=== PATIENT | female | born 1945 | race Caucasian/White ===

== ENCOUNTER 2021-04-12 19:15 | Observation (INO) | payer MEDICARE ==
[2021-04-12] MEDS ORDERED: MAG HYDROX/AL HYDROX/SIMETH 30 ML, HYOSCYAMINE ELIXIR 10 ML, LIDOCAINE VISCOUS 2% 10 ML PO STA ×3 (19:51)
[2021-04-12] MEDS ORDERED: ONDANSETRON 4 MG/2 ML VIAL IVP PRN (19:57)
[2021-04-12] MEDS ORDERED: NALOXONE 0.4 MG/ML 1 ML VIAL IV PRN (19:57)
--- NOTE | 2021-04-12 20:03 | ED ---
General Adult HPI - General Chief complaint: Abdominal Pain Stated complaint: abd pain Time Seen by Provider: 04/12/21 19:30 Source: patient, EMS Mode of arrival: EMS Limitations: no limitations - History of Present Illness Initial comments: Dictation was produced using [employer] dictation software. please excuse any grammatical, word or spelling errors. Chief Complaint: Patient is 75-year-old female sent in from [facility] for GI consultation. History of Present Illness: 75-year-old female she presents from [facility] for GI consultation. Patient states that she was at a restaurant having a meal when mid medial she began having epigastric pain. States it was severe. She was brought to [facility] where she was evaluated. They did do a CT showed a hiatal hernia. Patient has no history of hiatal hernia. Patient's labs were unremarkable. She was sent here for GI consultation. Patient states that the pain is localized to the epigastric area did not radiate to the shoulders or jaw. Not associated with nausea. They tried to do a by mouth trial there and supposedly she threw it right back up. She denies foreign body sensation in her throat. At this point she feels fine. She denies having trouble breathing and not drooling. The ROS documented in this emergency department record has been reviewed and confirmed by me. Those systems with pertinent positive or negative responses have been documented in the HPI. All other systems are other negative and/or noncontributory. PHYSICAL EXAM: General Impression: Alert and oriented x3, not in acute distress HEENT: Normocephalic atraumatic, extra-ocular movements intact, pupils equal and reactive to light bilaterally, mucous membranes moist. Cardiovascular: Heart regular rate and rhythm Chest: Able to complete full sentences, no retractions, no tachypnea Abdomen: abdomen soft, mild epigastric tenderness, non-distended, no organ omegaly Musculoskeletal: Pulses present and equal in all extremities, no peripheral edema Motor: no focal deficits noted Neurological: CN II-XII grossly intact, no focal motor or sensory deficits noted Skin: Intact with no visualized rashes Psych: Normal affect and mood ED course: 75-year-old female presents to the emergency department for epigastric pain, hiatal hernia and dysphagia. Vital signs upon arrival are within acceptable limits. Patient was worked up and treated initially at [facility]. They do not have GI consult. They sent patient to us for GI consultation. Dr. Almanza is attraction attendant. Patient has seen Dr. Almanza in the past. Patient evaluated at the bedside found to be stable medical condition. Patient does not have any ACS features. Transfer documentation was reviewed. Review of Systems ROS Statement: Those systems with pertinent positive or pertinent negative responses have been documented in the HPI. ROS Other: All systems not noted in ROS Statement are negative. General Exam Limitations: no limitations Course Vital Signs 04/12/21 19:19 Temperature 98.3 F Pulse Rate 97 Respiratory 18 Rate Blood Pressure 146/93 O2 Sat by Pulse 96 Oximetry Disposition Clinical Impression: Dysphagia Disposition: ADMITTED IP TO THIS HOSP Condition: Fair Referrals: Naman Batista MD [Primary Care Provider] - 1-2 days
[2021-04-12] MEDS: SODIUM CHLORIDE 0.9% 1,000 ML IV SCH (20:17)
[2021-04-13] MEDS ORDERED: lisinopriL 20 MG TAB PO SCH (03:13)
[2021-04-13] MEDS: MORPHINE SULFATE 2 MG/ML SYRINGE IVP PRN ×5 (03:42→21:54)
[2021-04-13] MEDS: SODIUM CHLORIDE 0.9% 1,000 ML IV SCH ×3 (06:19→21:55)
[2021-04-13] MEDS: SYMBICORT 160-4.5 MCG INHALER INHALATION SCH ×2 (07:31→19:40)
[2021-04-13] MEDS ORDERED: PANTOPRAZOLE 40 MG/10 ML VIAL IV SCH (09:00)
[2021-04-13] MEDS: DOCUSATE 100 MG CAP PO SCH (09:52)
[2021-04-13] MEDS: FERROUS SULFATE 325 MG TAB PO SCH (09:52)
[2021-04-13] MEDS: MULTIVITAMINS, THERA 1 EACH TAB PO SCH (09:52)
[2021-04-13 10:41] LABS: Basophils % (A) 0 %; Eosinophils # (A) 0.1 k/uL (0-0.7); Eosinophils % (A) 1 %; HCT 39.3 % (34.0-46.0); HGB 12.3 gm/dL (11.4-16.0); Lymphocytes % (A) 13 %; MCH 29.1 pg (25.0-35.0); MCHC 31.2 g/dL (31.0-37.0); MCV 93.1 fL (80.0-100.0); Mean Platelet Volume 7.6; Monocytes # (A) 0.7 k/uL (0-1.0); Monocytes % (A) 8 %; Neutrophils # (A) 6.2 k/uL (1.3-7.7); Neutrophils % (A) 76 %; Platelet Count 264 k/uL (150-450); RBC 4.22 m/uL (3.80-5.40); WBC 8.1 k/uL (3.8-10.6)
[2021-04-13 10:59] LABS: Chloride 103 mmol/L (98-107)
[2021-04-13 11:01] LABS: ALT 13 U/L (4-34); AST 21 U/L (14-36); African American GFR (CKD) >90 (>60 ml/min/1.73 sqM); Albumin 3.3 g/dL (3.5-5.0); Albumin/Globulin Ratio 1.4; Alkaline Phosphatase 138 U/L (38-126); Anion Gap 4 mmol/L; Blood Urea Nitrogen 15 mg/dL (7-17); Calcium 8.7 mg/dL (8.4-10.2); Carbon Dioxide 25 mmol/L (22-30); Globulin 2.3 g/dL; Glucose 107 mg/dL (74-99); Non-African American GFR(CKD) >90 (>60 ml/min/1.73 sqM); Potassium 4.1 mmol/L (3.5-5.1); Sodium 132 mmol/L (137-145); Total Bilirubin 1.2 mg/dL (0.2-1.3); Total Protein 5.6 g/dL (6.3-8.2)
[2021-04-13] MEDS ORDERED: PROPOFOL 10 MG/ML 20 ML VIAL IV ONE (13:13)
[2021-04-13] MEDS ORDERED: SODIUM CHLORIDE 0.9% 500 ML 500 ML IV ONE ×2 (13:21)
[2021-04-13] MEDS ORDERED: RX INFO: IV CONTRAST WAS GIVEN 1 EACH MISC MISCELLANE PRN (13:27)
--- NOTE | 2021-04-13 13:31 | P.PCN ---
Date of Procedure: 04/13/21 Procedure(s) Performed: BRIEF HISTORY: Patient is a 75-year-old, pleasant, white female admitted hospital with acute onset of severe epigastric pain but she was eating at restaurants yesterday. She initially went to the [facility] and had a CT of the abdomen done that was unremarkable other than a small hiatal hernia.. she was then transferred to [facility] and patient continues to have severe epigastric pain and midsternal pain. She reports no nausea vomiting. Dysphagia has resolved. She is scheduled for an upper endoscopy to evaluate further PROCEDURE PERFORMED: Esophagogastroduodenoscopy with biopsy . PREOPERATIVE DIAGNOSIS: ACUTE onset of severe epigastric pain and dysphagia since yesterday IV sedation per anesthesia. PROCEDURE: After informed consent was obtained, the patient was brought into the endoscopy unit. IV sedation was administered by Anesthesia under continuous monitoring. Initially the Olympus GIF-140 video endoscope was inserted into the mouth. Esophagus intubated without any difficulty. It was gradually advanced into the stomach and duodenum and carefully examined. The bulb and the second part of the duodenum appeared normal. The scope at this time was withdrawn to the stomach, adequately insufflated with air, and upon careful examination, mucosa of the antrum had 5 small superficial antral ulcers measuring between 3-4 mm in size with no active bleeding. Status post biopsy. Mucosa of the cardia and the fundus appeared normal. The scope was then withdrawn into the esophagus. The GE junction was located at 39 cm from the incisors. small hiatal hernia noted. There was a deep esophageal ulceration noted in the distal esophagus extending from 35-39 cm from the incisors with some spontaneous oozing identified. The Rest of the esophagus appeared normal. There were no erosions or ulcerations seen and the patient tolerated the procedure well. IMPRESSION: 1. Deep distal esophageal ulceration extended from 30-35 cm from the incisors with some oozing suspicious for spontaneous esophageal tear. 2. Small hiatal hernia. 3. Small superficial antral ulcers with no active bleeding RECOMMENDATIONS: The findings of this examination were discussed with the patient . At this time she will be kept nothing by mouth. Obtain CT of the chest to rule out esophageal perforation...
--- NOTE | 2021-04-13 15:34 | P.CONS ---
History of Present Illness - Reason for Consult Consult date: 04/13/21 GI bleed, Hiatal hernia Requesting physician: Wil Lerner - Chief Complaint Epigastric pain - History of Present Illness This is a 75-year-old white female who was transferred from [facility] for GI consult relating to epigastric pain that began yesterday after eating her dinner. Patient states that she was eating a salad and some salmon and she started having severe epigastric pain, the pain was so bad that she was unable to finish her dinner. She went to [facility] for further evaluation. She had a chest x-ray yesterday showed no acute process as well as a CT of the abdomen and pelvis that showed a moderate sized hiatal hernia. The patient last had a EGD and colonoscopy in January [address] Payton at [facility]. The patient states she only had findings of a small colon polyp and no recall of any hiatal hernia. Patient states she had nausea and vomiting yesterday, none today. She does take a low-dose aspirin and meloxicam daily. Labs were unremarkable at [facility]. She has been nothing by mouth. She denies any hematemesis, coffee-ground emesis, or melena. Denies any previous history of ulcers. She currently states the pain is still an 8 out of 10. Review of Systems REVIEW OF SYSTEMS: CARDIOPULMONARY: No chest pain or shortness of breath. Gastrointestinal: Epigastric pain. Nausea with vomiting. No hematemesis, coffee-ground emesis. No rectal bleeding, or melena. GENITOURINARY: No dysuria or hematuria. MUSCULOSKELETAL: Reports normal range of motion., Joint pain. SKIN: No rashes. No jaundice. ENDOCRINE: No chills, fevers. No excessive weight gain or loss. No polydipsia or polyuria. PSYCHIATRIC: Unremarkable. NEUROLOGY: No change in mental status. Denies dizziness, headache. ENT: Vision unremarkable. CONSTITUTIONAL: No recent weight loss. No fever, chills, night sweats. Past Medical History Past Medical History: Asthma, Hypertension History of Any Multi-Drug Resistant Organisms: None Reported Past Surgical History: No Surgical Hx Reported Past Anesthesia/Blood Transfusion Reactions: No Reported Reaction Past Psychological History: No Psychological Hx Reported Smoking Status: Never smoker Medications and Allergies Home Medications Medication Instructions Recorded Confirmed Type Albuterol Inhaler [Ventolin Hfa 1 - 2 puff INHALATION RT-Q4H PRN 04/12/21 04/12/21 History Inhaler] Budesonide/Formoterol Fumarate 2 puff INHALATION RT-BID@1000,2200 04/12/21 04/12/21 History [Symbicort 160-4.5 Mcg Inhaler] Docusate [Colace] 100 mg PO DAILY 04/12/21 04/12/21 History Doxepin HCl 50 mg PO HS@2200 04/12/21 04/12/21 History Enalapril Maleate 20 mg PO HS@2200 04/12/21 04/12/21 History Ferrous Sulfate [Iron (65 MG 325 mg PO DAILY 04/12/21 04/12/21 History Elemental)] Meloxicam 7.5 mg PO BID 04/12/21 04/12/21 History Montelukast [Singulair] 10 mg PO HS@1800 04/12/21 04/12/21 History Multivitamins, Thera [Multivitamin 1 tab PO DAILY 04/12/21 04/12/21 History (formulary)] Allergies Allergy/AdvReac Type Severity Reaction Status Date / Time sulfamethoxazole Allergy Intermediate Nausea Verified 04/12/21 20:37 [From Bactrim] trimethoprim [From Bactrim] Allergy Intermediate Nausea Verified 04/12/21 20:37 prednisone Allergy Unknown Verified 04/12/21 20:37 tetracycline Allergy Rash/Hives Verified 04/12/21 20:37 rynatan Allergy Rash/Hives Uncoded 04/12/21 20:37 Physical Exam Vitals: Vital Signs Temp Pulse Pulse Resp BP BP Pulse Ox 04/13/21 08:06 98.4 F 87 18 132/68 96 04/13/21 08:00 87 18 04/13/21 02:20 98.3 F 90 18 144/74 96 04/13/21 02:00 90 18 04/12/21 23:18 82 18 156/79 96 04/12/21 21:12 90 18 143/86 97 04/12/21 19:19 98.3 F 97 18 146/93 96 Intake and Output 04/12/21 04/13/21 04/13/21 22:59 06:59 14:59 Other: Voiding Method Toilet Toilet # Voids 1 Weight 81.647 kg General appearance: The patient is alert, oriented, appears in no acute distress. HET: Head is normocephalic and atraumatic. Conjunctiva pink. Sclera anicteric. Neck: Supple without lymphadenopathy. Trachea midline. Heart: S1 S2. Regular rate and rhythm. Lungs: Clear to auscultation. Abdomen: Soft, epigastric tenderness, nondistended with bowel sounds. No guarding or rigidity. Skin: No rashes. No jaundice. Extremities: Normal skin color and turgor. No pedal edema. Neurological: No focal deficits. Alert and oriented 3.. Results CBC & Chem 7: 04/13/21 10:24 04/13/21 10:24 Assessment and Plan (1) Epigastric pain Narrative/Plan: 75-year-old female who presented to [facility] yesterday after eating dinner with new onset of severe epigastric pain. Patient states she was eating her salad and some salmon when suddenly she felt a severe pain in her epigastric region. She went to [facility] for further evaluation and had a chest x-ray that showed no acute findings and a CT of the abdomen that showed a moderate-sized hiatal hernia. Patient states the epigastric pain was associated with nausea and vomiting. She denies any previous histories of ulcers. She does take low-dose aspirin and meloxicam daily. She denied any hematemesis or coffee-ground emesis. No melena. She had a EGD and colonoscopy in January [address] Almanza at [facility] which she reports of a small colon polyp and no recollection of any hiatal hernia. Patient still having pain at this time but no further nausea or vomiting. There was possible concern for retained foreign body. Will proceed with upper endoscopy Current Visit: Yes Status: Acute Code(s): R10.13 - EPIGASTRIC PAIN SNOMED Code(s): 68822979 Plan: 1. Continue symptomatic and supportive care 2. Keep nothing by mouth 3. Avoid NSAIDs 4. Protonix 40 mg twice a day 5. Will proceed with EGD this afternoon, procedure discussed with patient in detail including risks and benefits. Patient willing to proceed. Thank you for this consultation, we will continue to follow. Dr. Marlo Almanza I agree with the dictator's note, documented as a scribe by Sue Vallejo.
--- NOTE | 2021-04-13 16:27 | P.HPIM ---
History of Present Illness H&P Date: 04/13/21 Chief Complaint: Abdominal pain History of presenting complaint: This is a pleasant 75-year-old patient, follows with Dr. Naman Batista. Chronic stable medical conditions include asthma, hypertension, osteoarthritis. Patient is having dinner last night when she suddenly developed severe epigastric pain. Limited localized there. No radiation to the back. She did vomit care. No fever no chills. She does get reflux symptoms. She is chronically on NSAIDs for arthritis. She initially presented to [facility] for which she was transferred here. She says over a year ago she had a EGD done by Dr. Marlo Almanza was found to have inflammation of the stomach. Denies any fever and chills. Put on IV fluids. GI was consulted. Pending EGD this morning. Review of systems: GEN.: Tired, EYES: None HEENT: None NECK: None RESPIRATORY: None CARDIOVASCULAR: None GASTROINTESTINAL: As above GENITOURINARY: [Urinary incontinence MUSCULOSKELETAL: Joint pains, especially hips and knees LYMPHATICS: None HEMATOLOGICAL: None PSYCHIATRY: None NEUROLOGICAL: None Past medical history to include: Asthma, hypertension, osteoarthritis Social history: . No smoking or alcohol. Family history: Reviewed, noncontributory to presentation Physical examination: VITAL SIGNS: 98.3, 97, 18, 146.93, 96% room air GENERAL: BMI 35.2, reclining in bed, awake not in distress. EYES: Pupils equal. Conjunctiva normal. HEENT: External appearance of nose and ears normal, oral cavity grossly normal. NECK: JVD not raised; masses not palpable. HEART: First and second heart sounds are normal; no edema. LUNGS: Respiratory rate normal; clear to auscultation. ABDOMEN: Soft, mild epigastric tenderness, liver spleen not palpable, no masses palpable. PSYCH: Alert and oriented x3; mood and affect normal. MUSCULAR skeletal: Evidence of OA in multiple joints NEUROLOGICAL: Cranial nerves grossly intact; no facial asymmetry, power and sensation grossly intact. LYMPHATICS: No lymph nodes palpable in the axilla and neck INVESTIGATIONS, reviewed in the clinical context: WBC 8.1 hemoglobin 12.3 platelets 264 potassium 4.1 creatinine 0.58 AST 21 ALT 13 alkaline phosphatase 138 albumin 3.3 Coronavirus [PCR]: Not detected Assessment and plan: -This patient presented with sudden onset of epigastric pain while having a meal. Patient's had intermittent reflux symptoms. Does chronically take NSAIDs. Concern about PUD. Along with esophagitis. PPI started. GI consulted. EGD today. Nothing by mouth -Moderate persistent asthma, stable . Continue albuterol when necessary, Symbicort 160/4.52 puffs twice a day, Synthroid 10 mg daily at bedtime -Bilateral primary osteoarthritis Discontinue meloxicam. Tylenol when necessary -Essential hypertension Enalapril 20 mg daily at bedtime -Chronic urinary stress incontinence Follow clinically -GERD On PPI -Chronic insomnia On doxepin Patient getting IV fluids. Made nothing by mouth. Started PPI. GI consulted. Pending EGD this afternoon. Care was discussed with the patient. Questions answered. Other home medications resumed. DC NSAIDs. Past Medical History Past Medical History: Asthma, Hypertension History of Any Multi-Drug Resistant Organisms: None Reported Past Surgical History: No Surgical Hx Reported Past Anesthesia/Blood Transfusion Reactions: No Reported Reaction Past Psychological History: No Psychological Hx Reported Smoking Status: Never smoker Medications and Allergies Home Medications Medication Instructions Recorded Confirmed Type Albuterol Inhaler [Ventolin Hfa 1 - 2 puff INHALATION RT-Q4H PRN 04/12/21 04/12/21 History Inhaler] Budesonide/Formoterol Fumarate 2 puff INHALATION RT-BID@1000,2200 04/12/21 04/12/21 History [Symbicort 160-4.5 Mcg Inhaler] Docusate [Colace] 100 mg PO DAILY 04/12/21 04/12/21 History Doxepin HCl 50 mg PO HS@2200 04/12/21 04/12/21 History Enalapril Maleate 20 mg PO HS@2200 04/12/21 04/12/21 History Ferrous Sulfate [Iron (65 MG 325 mg PO DAILY 04/12/21 04/12/21 History Elemental)] Meloxicam 7.5 mg PO BID 04/12/21 04/12/21 History Montelukast [Singulair] 10 mg PO HS@1800 04/12/21 04/12/21 History Multivitamins, Thera [Multivitamin 1 tab PO DAILY 04/12/21 04/12/21 History (formulary)] Allergies Allergy/AdvReac Type Severity Reaction Status Date / Time sulfamethoxazole Allergy Intermediate Nausea Verified 04/12/21 20:37 [From Bactrim] trimethoprim [From Bactrim] Allergy Intermediate Nausea Verified 04/12/21 20:37 prednisone Allergy Unknown Verified 04/12/21 20:37 tetracycline Allergy Rash/Hives Verified 04/12/21 20:37 rynatan Allergy Rash/Hives Uncoded 04/12/21 20:37 Physical Exam Vitals: Vital Signs Temp Pulse Pulse Resp BP BP Pulse Ox 04/13/21 08:06 98.4 F 87 18 132/68 96 04/13/21 08:00 87 18 04/13/21 02:20 98.3 F 90 18 144/74 96 04/13/21 02:00 90 18 04/12/21 23:18 82 18 156/79 96 04/12/21 21:12 90 18 143/86 97 04/12/21 19:19 98.3 F 97 18 146/93 96 Intake and Output 04/12/21 04/13/21 04/13/21 22:59 06:59 14:59 Other: Voiding Method Toilet Toilet # Voids 1 Weight 81.647 kg Results CBC & Chem 7: 04/13/21 10:24 04/13/21 10:24 Thrombosis Risk Factor Assmnt - Choose All That Apply Each Factor Represents 1 point: Obesity (BMI >25) Each Risk Factor Represents 2 Points: Age 61-74 years Other congenital or acquired thrombophilia - If yes, enter type in comment: No Thrombosis Risk Factor Assessment Total Risk Factor Score: 3 Thrombosis Risk Factor Assessment Level: Moderate Risk
[2021-04-13] MEDS: PANTOPRAZOLE 40 MG TABLET PO SCH (17:04)
--- NOTE | 2021-04-13 19:03 | CT ---
EXAMINATION TYPE: CT chest w con DATE OF EXAM: 04/13/2021 COMPARISON: Radiographs 04/12/2021. HISTORY: epigastric pain. Esophageal cancer. CT DLP: 328.8 mGycm Automated exposure control for dose reduction was used. TECHNIQUE: CT scan of the chest is performed with IV Contrast, patient injected with 100 mL of Isovue 300. MIP Images are created on CT scanner and reviewed. 3D reconstructed images are created on an independent workstation and reviewed. FINDINGS: LUNGS: There are trace bilateral pleural effusions with adjacent small opacities. There is no pneum othorax seen. No suspicious pulmonary nodules. The tracheobronchial tree is patent. MEDIASTINUM: There are no greater than 1 cm hilar or mediastinal lymph nodes. No pericardial effusi on is seen. OTHER: Hiatal hernia versus gastric pull-up postsurgical changes. No additional significant abnormal ity is seen. IMPRESSION: Trace pleural effusions adjacent atelectasis. Otherwise no acute abnormality.
[2021-04-13] MEDS: DOXEPIN 25 MG CAP PO SCH (21:55)
[2021-04-13] MEDS: MONTELUKAST 10 MG TAB PO SCH (21:55)
[2021-04-13] MEDS: lisinopriL 20 MG TAB PO SCH (21:55)
[2021-04-14] MEDS: MORPHINE SULFATE 2 MG/ML SYRINGE IVP PRN ×5 (02:17→20:19)
[2021-04-14] MEDS: ALBUTEROL NEBULIZED 2.5 MG/3 ML INHALATION PRN ×2 (07:38→15:38)
[2021-04-14] MEDS: SYMBICORT 160-4.5 MCG INHALER INHALATION SCH ×2 (07:38→19:15)
[2021-04-14] MEDS: PANTOPRAZOLE 40 MG TABLET PO SCH ×2 (09:12→15:46)
[2021-04-14] MEDS: MULTIVITAMINS, THERA 1 EACH TAB PO SCH (09:12)
[2021-04-14] MEDS: FERROUS SULFATE 325 MG TAB PO SCH (09:12)
[2021-04-14] MEDS: DOCUSATE 100 MG CAP PO SCH (09:12)
[2021-04-14] MEDS: SODIUM CHLORIDE 0.9% 1,000 ML IV SCH ×2 (09:14→17:53)
[2021-04-14 09:41] LABS: Basophils % (A) 0 %; Eosinophils # (A) 0.2 k/uL (0-0.7); Eosinophils % (A) 3 %; HCT 43.2 % (34.0-46.0); HGB 13.6 gm/dL (11.4-16.0); Lymphocytes # (A) 1.1 k/uL (1.0-4.8); Lymphocytes % (A) 17 %; MCH 29.8 pg (25.0-35.0); MCHC 31.6 g/dL (31.0-37.0); MCV 94.4 fL (80.0-100.0); Mean Platelet Volume 7.4; Monocytes # (A) 0.4 k/uL (0-1.0); Monocytes % (A) 7 %; Neutrophils # (A) 4.6 k/uL (1.3-7.7); Neutrophils % (A) 71 %; Platelet Count 252 k/uL (150-450); RBC 4.57 m/uL (3.80-5.40); WBC 6.4 k/uL (3.8-10.6)
[2021-04-14 10:03] LABS: African American GFR (CKD) >90 (>60 ml/min/1.73 sqM); Anion Gap 6 mmol/L; Blood Urea Nitrogen 9 mg/dL (7-17); Carbon Dioxide 25 mmol/L (22-30); Chloride 103 mmol/L (98-107); Glucose 99 mg/dL (74-99); Non-African American GFR(CKD) >90 (>60 ml/min/1.73 sqM); Potassium 3.4 mmol/L (3.5-5.1); Sodium 134 mmol/L (137-145)
--- NOTE | 2021-04-14 12:12 | P.PN ---
Subjective Progress Note Date: 04/14/21 Principal diagnosis: epigastric pain 75-year-old female who was a transfer from [facility] for severe epigastric pain underwent an EGD yesterday with findings of deep distal esophageal ulcer with oozing, small hiatal hernia, and small superficial antral ulcers without any bleeding. Patient underwent a CT of the chest which was unremarkable other than a hiatal hernia. Patient states abdominal pain has improved significantly. She is denying any nausea or vomiting. She has been nothing by mouth through the night. She has been afebrile. Hemoglobin stable actually improved to 13.6. No leukocytosis. Objective - Vital Signs Vital signs: Vital Signs Temp 97.5 F L 04/14/21 07:00 Pulse 86 04/14/21 07:57 Resp 17 04/14/21 07:00 BP 146/73 04/14/21 07:00 Pulse Ox 95 04/14/21 07:00 Intake & Output 04/13/21 04/14/21 04/14/21 18:59 06:59 18:59 Intake Total 150 Balance 150 Intake: IV 100 Oral 50 Other: Voiding Method Toilet Toilet # Voids 2 2 - Exam General appearance: The patient is alert, oriented, appears in no acute distress. HET: Head is normocephalic and atraumatic. Conjunctiva pink. Sclera anicteric. Neck: Supple without lymphadenopathy. Abdomen: Soft, nontender, nondistended with bowel sounds. No guarding or rigidity. Extremities: Normal skin color and turgor. No pedal edema Skin: No rashes, no jaundice Neurological: No focal deficits. Alert and oriented 3. - Labs CBC & Chem 7: 04/14/21 09:18 04/14/21 09:18 Labs: Abnormal Lab Results - Last 24 Hours (Table) 04/13/21 Range/Units 10:24 Sodium 132 L (137-145) mmol/L Glucose 107 H (74-99) mg/dL Alkaline Phosphatase 138 H (38-126) U/L Total Protein 5.6 L (6.3-8.2) g/dL Albumin 3.3 L (3.5-5.0) g/dL Assessment and Plan (1) Epigastric pain Narrative/Plan: 75-year-old female who presented to [facility] yesterday after eating dinner with new onset of severe epigastric pain. Patient states she was eating her salad and some salmon when suddenly she felt a severe pain in her epigastric region. She went to [facility] for further evaluation and had a chest x-ray that showed no acute findings and a CT of the abdomen that showed a moderate-sized hiatal hernia. Patient states the epigastric pain was associated with nausea and vomiting. She denies any previous histories of ulcers. She does take low-dose aspirin and meloxicam daily. She denied any hematemesis or coffee-ground emesis. No melena. She had a EGD and colonoscopy in January [address] Almanza at [facility] which she reports of a small colon polyp and no recollection of any hiatal hernia. Patient still having pain at this time but no further nausea or vomiting. There was possible concern for retained foreign body. Will proceed with upper endoscopy Patient is status post EGD with findings of deep distal esophageal ulcer with oozing, small hiatal hernia, small superficial antral ulcers without any bleeding. Patient to remain on Protonix 40 mg twice a day. CT of the chest was ordered which was unremarkable other than small hernia. Current Visit: Yes Status: Acute Code(s): R10.13 - EPIGASTRIC PAIN SNOMED Code(s): 75123035 Plan: 1. Continue symptomatic and supportive care 2. Clear liquid diet 3. Avoid NSAIDs 4. Protonix 40 mg twice a day 5. Patient is status post EGD 6. CT of chest ordered and reviewed Thank you for this consultation, we will continue to follow. Dr. Marlo Almanza I agree with the dictator's note, documented as a scribe by Sue Vallejo.
--- NOTE | 2021-04-14 14:42 | P.GSCN ---
History of Present Illness Consult date: 04/14/21 Reason for Consult: Esophageal tear Requesting physician: Hossein Hay History of present illness: This is a 75-year-old female patient who follows on an outpatient basis Dr. Batista for primary care. She has a previous medical history of hypertension, asthma, GERD, and osteoarthritis. She presented to [facility] with complaints of sudden severe epigastric pain when eating dinner. She denied any radiation, fevers, chills. She did endorse vomiting. She is chronically on NSAIDS for her osteoarthritis. She did have an EGD completed approximately a year ago by Dr. Almanza and was found to have inflammation of her stomach. She was admitted for evaluation and treatment with consultation placed to Dr. Almanza who performed endoscopy yesterday which demonstrated deep distal esophageal ulceration extended from 30-35 cm from the incisors with some oozing suspicious for spontaneous esophageal tear, small hiatal hernia, and small superficial antral ulcers with no active bleeding. Due to the suspicion of esophageal tear a CT of the chest was ordered with no acute abnormality noted. Dr. Lovett from cardiothoracic surgery was consulted to review findings of the EGD regarding possible esophageal tear. Review of Systems Review of systems was completed it was negative except as noted - Gastrointestinal Gastrointestinal Comment(s): Esophageal pain, currently resolved Reports as per HPI Past Medical History Past Medical History: Asthma, GERD/Reflux, Hypertension, Osteoarthritis (OA) History of Any Multi-Drug Resistant Organisms: None Reported Past Surgical History: No Surgical Hx Reported Past Anesthesia/Blood Transfusion Reactions: No Reported Reaction Past Psychological History: No Psychological Hx Reported Smoking Status: Never smoker Past Alcohol Use History: None Reported Past Drug Use History: None Reported Medications and Allergies Home Medications Medication Instructions Recorded Confirmed Type Albuterol Inhaler [Ventolin Hfa 1 - 2 puff INHALATION RT-Q4H PRN 04/12/21 04/12/21 History Inhaler] Budesonide/Formoterol Fumarate 2 puff INHALATION RT-BID@1000,219904/12/21 04/12/21 History [Symbicort 160-4.5 Mcg Inhaler] Docusate [Colace] 100 mg PO DAILY 04/12/21 04/12/21 History Doxepin HCl 50 mg PO HS@219904/12/21 04/12/21 History Enalapril Maleate 20 mg PO HS@2200 04/12/21 04/12/21 History Ferrous Sulfate [Iron (65 MG 325 mg PO DAILY 04/12/21 04/12/21 History Elemental)] Meloxicam 7.5 mg PO BID 04/12/21 04/12/21 History Montelukast [Singulair] 10 mg PO HS@1800 04/12/21 04/12/21 History Multivitamins, Thera [Multivitamin 1 tab PO DAILY 04/12/21 04/12/21 History (formulary)] Allergies Allergy/AdvReac Type Severity Reaction Status Date / Time sulfamethoxazole Allergy Intermediate Nausea Verified 04/12/21 20:37 [From Bactrim] trimethoprim [From Bactrim] Allergy Intermediate Nausea Verified 04/12/21 20:37 prednisone Allergy Unknown Verified 04/12/21 20:37 tetracycline Allergy Rash/Hives Verified 04/12/21 20:37 rynatan Allergy Rash/Hives Uncoded 04/12/21 20:37 Surgical - Exam Vital Signs Temp Pulse Resp BP Pulse Ox 98.3 F 97 18 146/93 96 04/12/21 19:19 04/12/21 19:19 04/12/21 19:19 04/12/21 19:19 04/12/21 19:19 CONSTITUTIONAL: Awake and alert, appears comfortable, cooperative, well- developed, well-nourished, no pain, no acute distress EYES: Pupils equal, round, reactive to light, normal ocular movement ENT: Moist mucous membranes without oral lesions present NECK: No masses, no bruits, trachea midline RESPIRATORY: Lungs sounds clear to auscultation bilaterally. Respirations even, nonlabored. Currently on room air with oxygen saturation 95%. CARDIOVASCULAR: S1, S2 present. Regular rate and rhythm. Palpable peripheral pulses bilaterally. No edema present. GASTROINTESTINAL: Abdomen soft, nontender, nondistended without masses or organomegaly noted. There is no rebound or guarding present. Active bowel sounds present 4 quadrants. GENITOURINARY: Deferred INTEGUMENTARY: Skin is warm and dry with evidence of good perfusion. NEUROLOGIC: Cranial nerves II through XII intact, normal coordination, no obvious motor or sensory deficits, speech is normal MUSKULOSKELETAL: Able to move all extremities, strength equal bilaterally, normal posture PSYCHIATRIC: Alert and oriented to person place and time, appropriate affect, intact judgment and insight Results - Labs 04/14/21 09:18 04/14/21 09:18 Abnormal Lab Results - Last 24 Hours (Table) 04/14/21 Range/Units 09:18 Sodium 134 L (137-145) mmol/L Potassium 3.4 L (3.5-5.1) mmol/L Diabetes panel 04/14/21 Range/Units 09:18 Sodium 134 L (137-145) mmol/L Potassium 3.4 L (3.5-5.1) mmol/L Chloride 103 (98-107) mmol/L Carbon Dioxide 25 (22-30) mmol/L BUN 9 (7-17) mg/dL Creatinine 0.57 (0.52-1.04) mg/dL Glucose 99 (74-99) mg/dL Calcium 9.0 (8.4-10.2) mg/dL Calcium panel 04/14/21 Range/Units 09:18 Calcium 9.0 (8.4-10.2) mg/dL Pituitary panel 04/14/21 Range/Units 09:18 Sodium 134 L (137-145) mmol/L Potassium 3.4 L (3.5-5.1) mmol/L Chloride 103 (98-107) mmol/L Carbon Dioxide 25 (22-30) mmol/L BUN 9 (7-17) mg/dL Creatinine 0.57 (0.52-1.04) mg/dL Glucose 99 (74-99) mg/dL Calcium 9.0 (8.4-10.2) mg/dL Adrenal panel 04/14/21 Range/Units 09:18 Sodium 134 L (137-145) mmol/L Potassium 3.4 L (3.5-5.1) mmol/L Chloride 103 (98-107) mmol/L Carbon Dioxide 25 (22-30) mmol/L BUN 9 (7-17) mg/dL Creatinine 0.57 (0.52-1.04) mg/dL Glucose 99 (74-99) mg/dL Calcium 9.0 (8.4-10.2) mg/dL - Imaging CT scan - chest: report reviewed, image reviewed Assessment and Plan Assessment: 1. Sudden severe esophageal pain, status post EGD 2. Hypertension 3. Asthma 4. GERD 5. Osteoarthritis, on chronic NSAIDS Plan: The patient was seen and examined at the bedside with Dr. Lovett. The chart/diagnostics were reviewed including review of CT scan with Dr. Lovett. There is no evidence of full thickness injury to the esophagus, the patient may have superficial partial thickness tear although doubtful as the patient has no fever, no leukocytosis, and no other evidence on CT or by physical examination. No surgical intervention is warranted. Continue medical management per primary care service. Thank you Dr. Hay for this consult. Please call us with any further questions. Time with Patient: Greater than 30
[2021-04-14] MEDS: MONTELUKAST 10 MG TAB PO SCH (20:19)
[2021-04-14] MEDS: lisinopriL 20 MG TAB PO SCH (20:19)
[2021-04-14] MEDS: DOXEPIN 25 MG CAP PO SCH (20:19)
[2021-04-15] MEDS: MORPHINE SULFATE 2 MG/ML SYRINGE IVP PRN ×5 (01:25→20:42)
[2021-04-15] MEDS: SODIUM CHLORIDE 0.9% 1,000 ML IV SCH ×3 (04:34→20:42)
[2021-04-15] MEDS: PANTOPRAZOLE 40 MG TABLET PO SCH ×2 (07:21→17:07)
[2021-04-15] MEDS: MULTIVITAMINS, THERA 1 EACH TAB PO SCH (07:21)
[2021-04-15] MEDS: ALBUTEROL NEBULIZED 2.5 MG/3 ML INHALATION PRN ×3 (07:58→16:47)
[2021-04-15] MEDS: SYMBICORT 160-4.5 MCG INHALER INHALATION SCH ×2 (07:58→20:13)
[2021-04-15] MEDS: MAG HYDROX/AL HYDROX/SIMETH 30 ML CUP PO PRN ×3 (11:14→23:55)
[2021-04-15 11:48] VITALS: BMI 35.2
--- NOTE | 2021-04-15 15:32 | P.PN ---
Subjective Progress Note Date: 04/15/21 Principal diagnosis: epigastric pain 75-year-old female who was a transfer from [facility] for severe epigastric pain underwent an EGD yesterday with findings of deep distal esophageal ulcer with oozing, small hiatal hernia, and small superficial antral ulcers without any bleeding. Patient underwent a CT of the chest which was unremarkable other than a hiatal hernia. Cardiothoracic surgery was consult if by primary medicine team, no surgical intervention indicated. The patient states she did have the pain again through the night in the epigastric region. Denied any nausea or vomiting. She is tolerating her clear liquid diet. No difficulty with swallowing or painful swallowing. Objective - Vital Signs Vital signs: Vital Signs Temp 98.3 F 04/15/21 07:00 Pulse 84 04/15/21 08:11 Resp 19 04/15/21 08:00 BP 155/83 04/15/21 07:00 Pulse Ox 97 04/15/21 07:00 Intake & Output 04/14/21 04/15/21 04/15/21 18:59 06:59 18:59 Intake Total 239 180 Balance 239 180 Intake: Oral 239 180 Other: Voiding Method Toilet Toilet Toilet # Voids 4 3 # Bowel Movements 1 1 - Exam General appearance: The patient is alert, oriented, appears in no acute distress. HET: Head is normocephalic and atraumatic. Conjunctiva pink. Sclera anicteric. Neck: Supple without lymphadenopathy. Abdomen: Soft, nontender, nondistended with bowel sounds. No guarding or rigidity. Extremities: Normal skin color and turgor. No pedal edema Skin: No rashes, no jaundice Neurological: No focal deficits. Alert and oriented 3. - Labs CBC & Chem 7: 04/14/21 09:18 04/14/21 09:18 Assessment and Plan (1) Epigastric pain Narrative/Plan: 75-year-old female who presented to [facility] yesterday after eating dinner with new onset of severe epigastric pain. Patient states she was eating her salad and some salmon when suddenly she felt a severe pain in her epigastric region. She went to [facility] for further evaluation and had a chest x-ray that showed no acute findings and a CT of the abdomen that showed a moderate-sized hiatal hernia. Patient states the epigastric pain was associated with nausea and vomiting. She denies any previous histories of ulcers. She does take low-dose aspirin and meloxicam daily. She denied any hematemesis or coffee-ground emesis. No melena. She had a EGD and colonoscopy in January [address] Almanza at [facility] which she reports of a small colon polyp and no recollection of any hiatal hernia. Patient still havin g pain at this time but no further nausea or vomiting. There was possible concern for retained foreign body. Will proceed with upper endoscopy Patient is status post EGD with findings of deep distal esophageal ulcer with oozing, small hiatal hernia, small superficial antral ulcers without any ble eding. Patient to remain on Protonix 40 mg twice a [address] of the chest was ordered which was unremarkable other than small hernia. Current Visit: Yes Status: Acute Code(s): R10.13 - EPIGASTRIC PAIN SNOMED Code(s): 75231727 Plan: 1. Continue symptomatic and supportive care 2. Continue Clear liquid diet, will advance to full liquids tomorrow 3. Avoid NSAIDs 4. Protonix 40 mg twice a day 5. Patient is status post EGD 6. CT of chest ordered and reviewed 7. Recommend patient stay another night for further monitoring 8. Maalox ordered as needed Thank you for this consultation, we will continue to follow. Dr. Marlo Almanza I agree with the dictator's note, documented as a scribe by Sue Vallejo.
--- NOTE | 2021-04-15 16:21 | P.PN ---
Progress Note - Text Progress Note Date: 04/14/21 History of presenting complaint: This is a pleasant 75-year-old patient, follows with Dr. Naman Batista. Chronic stable medical conditions include asthma, hypertension, osteoarthritis. Patient is having dinner last night when she suddenly developed severe epigastric pain. Limited localized there. No radiation to the back. She did vomit care. No fever no chills. She does get reflux symptoms. She is chronically on NSAIDs for arthritis. She initially presented to [facility] for which she was transferred here. She says over a year ago she had a EGD done by Dr. Marlo Almanza was found to have inflammation of the stomach. Denies any fever and chills. Put on IV fluids. GI was consulted. Pending EGD this morning. April 14: EGD done yesterday revealed superficial antral ulcers and linear superficial esophageal tear, with slight oozing. Computed tomography scan of the chest was negative for any air leak. Patient has been placed on eliquis. Getting intermittent lower chest pain. Cardiothoracic surgery consulted. Discussed with Dr. Marlo Almanza. Keep on clear liquids. Review of systems: Was done for constitutional, cardiovascular, GI, pulmonary. relevant finding as above Current medications reviewed in electronic records Past medical history to include: Asthma, hypertension, osteoarthritis Social history: . No smoking or alcohol. Family history: Reviewed, noncontributory to presentation Physical examination: VITAL SIGNS: 97.5, 82, 17, 146/73, 95% room air GENERAL: reclining in bed, awake not in distress. EYES: Pupils equal. Conjunctiva normal. NECK: JVD not raised; masses not palpable. HEART: First and second heart sounds are normal; no edema. LUNGS: Respiratory rate normal; clear to auscultation. ABDOMEN: Soft, no tenderness, liver spleen not palpable, no masses palpable. PSYCH: Alert and oriented x3; mood and affect normal. MUSCULAR skeletal: Evidence of OA in multiple joints INVESTIGATIONS, reviewed in the clinical context: Computed tomography scan of the chest [April 13]: Small pleural effusion. EGD: Superficial esophageal tear. Superficial antral ulcers WBC 8.1 hemoglobin 12.3 platelets 264 potassium 4.1 creatinine 0.58 AST 21 ALT 13 alkaline phosphatase 138 albumin 3.3 Coronavirus [PCR]: Not detected Assessment and plan: -Superficial esophageal tear. No perforation : Continues to have some pain. Computed tomography scan unremarkable. Keep on clear liquids. Cardiothoracic surgery consulted. -Moderate persistent asthma, stable . Continue albuterol when necessary, Symbicort 160/4.52 puffs twice a day, Synthroid 10 mg daily at bedtime -Bilateral primary osteoarthritis Discontinue meloxicam. Tylenol when necessary -Essential hypertension Enalapril 20 mg daily at bedtime -Chronic urinary stress incontinence Follow clinically -GERD On PPI -Chronic insomnia On doxepin Continue IV fluids. Continue clear liquid diet. Discussed with Dr. Marlo Almanza. Cardiothoracic team consulted. As a backup. Discussed with the patient.
--- NOTE | 2021-04-15 16:28 | P.PN ---
Progress Note - Text Progress Note Date: 04/15/21 History of presenting complaint: This is a pleasant 75-year-old patient, follows with Dr. Naman Batista. Chronic stable medical conditions include asthma, hypertension, osteoarthritis. Patient is having dinner last night when she suddenly developed severe epigastric pain. Limited localized there. No radiation to the back. She did vomit care. No fever no chills. She does get reflux symptoms. She is chronically on NSAIDs for arthritis. She initially presented to [facility] for which she was transferred here. She says over a year ago she had a EGD done by Dr. Marlo Almanza was found to have inflammation of the stomach. Denies any fever and chills. Put on IV fluids. GI was consulted. Pending EGD this morning. April 14: EGD done yesterday revealed superficial antral ulcers and linear superficial esophageal tear, with slight oozing. Computed tomography scan of the chest was negative for any air leak. Patient has been placed on eliquis. Getting intermittent lower chest pain. Cardiothoracic surgery consulted. Discussed with Dr. Marlo Almanza. Keep on clear liquids. April 15: Continues to have lower chest pain around 6/10. Clear liquids. Has been up to the bathroom. Did walk in the hallway. No nausea vomiting. Seen by cardiothoracic team yesterday. As a backup. Review of systems: Was done for constitutional, cardiovascular, GI, pulmonary. relevant finding as above Active Medications Al Hydroxide/Mg Hydroxide (Mag Hydrox/Al Hydrox/Simeth 30 Ml Cup) 30 ml PO Q4HR PRN PRN Reason: GI Upset Last Admin: 04/15/21 15:17 Dose: 30 ml Documented by: Albuterol Sulfate (Albuterol Nebulized 2.5 Mg/3 Ml) 2.5 mg INHALATION RT-Q4H PRN PRN Reason: Shortness Of Breath Last Admin: 04/15/21 12:13 Dose: 2.5 mg Documented by: Budesonide/Formoterol Fumarate (Symbicort 160-4.5 Mcg Inhaler) 2 puff INHALATION RT-BID@1000,2200 [facility] Last Admin: 04/15/21 07:58 Dose: 2 puff Documented by: Doxepin HCl (Doxepin 25 Mg Cap) 50 mg PO HS [facility] Last Admin: 04/14/21 20:19 Dose: 50 mg Documented by: Sodium Chloride (Saline 0.9%) 1,000 mls @ 110 mls/hr IV .Q9H6M [facility] Last Admin: 04/15/21 15:17 Dose: 110 mls/hr Documented by: Lisinopril (Lisinopril 20 Mg Tab) 40 mg PO [facility] Last Admin: 04/14/21 20:19 Dose: 40 mg Documented by: Montelukast Sodium (Montelukast 10 Mg Tab) 10 mg PO [facility] Last Admin: 04/14/21 20:19 Dose: 10 mg Documented by: Morphine Sulfate (Morphine Sulfate 2 Mg/Ml Syringe) 1 mg IVP Q4HR PRN PRN Reason: Pain Last Admin: 04/15/21 15:17 Dose: 1 mg Documented by: Multivitamins (Multivitamins, Thera 1 Each Tab) 1 each PO DAILY [facility] Last Admin: 04/15/21 07:21 Dose: 1 each Documented by: Naloxone HCl (Naloxone 0.4 Mg/Ml 1 Ml Vial) 0.2 mg IV Q2M PRN PRN Reason: Opioid Reversal Ondansetron HCl (Ondansetron 4 Mg/2 Ml Vial) 4 mg IVP Q8HR PRN PRN Reason: Nausea And Vomiting Pantoprazole Sodium (Pantoprazole 40 Mg Tablet) 40 mg PO AC-BID [facility] Last Admin: 04/15/21 07:21 Dose: 40 mg Documented by: Past medical history to include: Asthma, hypertension, osteoarthritis Social history: . No smoking or alcohol. Family history: Reviewed, noncontributory to presentation Physical examination: VITAL SIGNS: 97.7, 97, 18, 156.77, 98% GENERAL: reclining in bed, awake not in distress. EYES: Pupils equal. Conjunctiva normal. NECK: JVD not raised; masses not palpable. HEART: First and second heart sounds are normal; no edema. LUNGS: Respiratory rate normal; clear to auscultation. ABDOMEN: Soft, no tenderness, liver spleen not palpable, no masses palpable. PSYCH: Alert and oriented x3; mood and affect normal. MUSCULAR skeletal: Evidence of OA in multiple joints INVESTIGATIONS, reviewed in the clinical context: Computed tomography scan of the chest [April 13]: Small pleural effusion. EGD: Superficial esophageal tear. Superficial antral ulcers WBC 8.1 hemoglobin 12.3 platelets 264 potassium 4.1 creatinine 0.58 AST 21 ALT 13 alkaline phosphatase 138 albumin 3.3 Coronavirus [PCR]: Not detected Assessment and plan: -Superficial esophageal tear. No perforation : Continues to have some pain. Computed tomography scan unremarkable. Keep on clear liquids. -Gastric superficial antral ulcers PPI -Moderate persistent asthma, stable . Continue albuterol when necessary, Symbicort 160/4.52 puffs twice a day, Singulair 10 mg daily at bedtime -Bilateral primary osteoarthritis Discontinue meloxicam. Tylenol when necessary -Essential hypertension Enalapril 20 mg daily at bedtime -Chronic urinary stress incontinence Follow clinically -GERD On PPI -Chronic insomnia On doxepin Continue IV fluids. , clear liquid diet. Discussed with patient. Increase activity as tolerated..
[2021-04-15] MEDS: DOXEPIN 25 MG CAP PO SCH (20:42)
[2021-04-15] MEDS: MONTELUKAST 10 MG TAB PO SCH (20:42)
[2021-04-15] MEDS: lisinopriL 20 MG TAB PO SCH (20:42)
[2021-04-16] MEDS: MORPHINE SULFATE 2 MG/ML SYRINGE IVP PRN (06:14)
[2021-04-16] MEDS: SODIUM CHLORIDE 0.9% 1,000 ML IV SCH ×2 (06:15→17:31)
[2021-04-16] MEDS: ALBUTEROL NEBULIZED 2.5 MG/3 ML INHALATION PRN ×3 (07:40→15:39)
[2021-04-16] MEDS: SYMBICORT 160-4.5 MCG INHALER INHALATION SCH ×2 (07:40→19:50)
[2021-04-16] MEDS: MULTIVITAMINS, THERA 1 EACH TAB PO SCH (07:50)
[2021-04-16] MEDS: PANTOPRAZOLE 40 MG TABLET PO SCH ×2 (07:50→16:18)
[2021-04-16 09:20] LABS: Basophils % (A) 0 %; Eosinophils # (A) 0.1 k/uL (0-0.7); Eosinophils % (A) 2 %; HGB 12.7 gm/dL (11.4-16.0); Lymphocytes # (A) 1.1 k/uL (1.0-4.8); Lymphocytes % (A) 18 %; MCH 29.5 pg (25.0-35.0); MCHC 31.7 g/dL (31.0-37.0); Mean Platelet Volume 7.4; Monocytes # (A) 0.5 k/uL (0-1.0); Monocytes % (A) 8 %; Neutrophils # (A) 4.3 k/uL (1.3-7.7); Neutrophils % (A) 71 %; Platelet Count 294 k/uL (150-450); RDW 12.9 % (11.5-15.5); WBC 6.1 k/uL (3.8-10.6)
[2021-04-16 09:31] LABS: African American GFR (CKD) >90 (>60 ml/min/1.73 sqM); Anion Gap 9 mmol/L; Blood Urea Nitrogen 6 mg/dL (7-17); Carbon Dioxide 25 mmol/L (22-30); Chloride 102 mmol/L (98-107); Glucose 164 mg/dL (74-99); Non-African American GFR(CKD) >90 (>60 ml/min/1.73 sqM); Potassium 3.2 mmol/L (3.5-5.1); Sodium 136 mmol/L (137-145)
[2021-04-16] MEDS: MAG HYDROX/AL HYDROX/SIMETH 30 ML CUP PO PRN ×2 (11:31→23:30)
--- NOTE | 2021-04-16 12:08 | P.PN ---
Subjective Progress Note Date: 04/16/21 Principal diagnosis: epigastric pain 75-year-old female who was a transfer from [facility] for severe epigastric pain underwent an EGD yesterday with findings of deep distal esophageal ulcer with oozing, small hiatal hernia, and small superficial antral ulcers without any bleeding. Patient underwent a CT of the chest which was unremarkable other than a hiatal hernia. Cardiothoracic surgery was consult if by primary medicine team, no surgical intervention indicated. The patient states pain is improved. Still has some discomfort when eating or drinking certain liquids. However she does state that Maalox does help. She denies any nausea or vomiting. She's been afebrile. Objective - Vital Signs Vital signs: Vital Signs Temp 97.8 F 04/16/21 07:00 Pulse 88 04/16/21 07:53 Resp 19 04/16/21 07:00 BP 148/78 04/16/21 07:00 Pulse Ox 99 04/16/21 07:00 Intake & Output 04/15/21 04/16/21 04/16/21 18:59 06:59 18:59 Intake Total 597 237 Balance 597 237 Weight 81.647 kg Intake: Oral 597 237 Other: Voiding Method Toilet Toilet Toilet # Voids 3 3 # Bowel Movements 1 1 - Exam General appearance: The patient is alert, oriented, appears in no acute distress. HET: Head is normocephalic and atraumatic. Conjunctiva pink. Sclera anicteric. Neck: Supple without lymphadenopathy. Abdomen: Soft, nontender, nondistended with bowel sounds. No guarding or rigidity. Extremities: Normal skin color and turgor. No pedal edema Skin: No rashes, no jaundice Neurological: No focal deficits. Alert and oriented 3. - Labs CBC & Chem 7: 04/16/21 08:48 04/16/21 08:48 Assessment and Plan (1) Epigastric pain Narrative/Plan: 75-year-old female who presented to [facility] yesterday after eating dinner with new onset of severe epigastric pain. Patient states she was eating her salad and some salmon when suddenly she felt a severe pain in her epigastric region. She went to [facility] for further evaluation and had a chest x-ray that showed no acute findings and a CT of the abdomen that showed a moderate-sized hiatal hernia. Patient states the epigastric pain was associated with nausea and vomiting. She denies any previous histories of u lcers. She does take low-dose aspirin and meloxicam daily. She denied any hematemesis or coffee-ground emesis. No melena. She had a EGD and colonoscopy in January [address] Almanza at [facility] which she reports of a small colon polyp and no recollection of any hiatal hernia. Patient still having pain at this time but no further nausea or vomiting. There was possible concern for retained foreign body. Will proceed with upper endoscopy Patient is status post EGD with findings of deep distal esophageal ulcer with oozing, small hiatal hernia, small superficial antral ulcers without any bleeding. Patient to remain on Protonix 40 mg twice [address] of the chest was ordered which was unremarkable other than small hernia. Current Visit: Yes Status: Acute Code(s): R10.13 - EPIGASTRIC PAIN SNOMED Code(s): 00435777 Plan: 1. Continue symptomatic and supportive care 2. Advance to soft diet in morning 3. Avoid NSAIDs 4. Protonix 40 mg twice a day 5. Patient is status post EGD 6. CT of chest ordered and reviewed 7. Maalox ordered as needed 8. If patient tolerates advanced diet she may be discharged tomorrow Thank you for allowing us to participate in the care of the patient, the GI service will sign off, gastroenterology will not be available at the hospital this weekend and through next week. If further evaluation by gastroenterology is required the patient will need transfer as per the primary team's discretion. Dr. Marlo Almanza I agree with the dictator's note, documented as a scribe by Sue Vallejo.
[2021-04-16] MEDS ORDERED: POTASSIUM CHLORIDE ER 20 MEQ TAB.ER PO STA (15:44)
--- NOTE | 2021-04-16 15:45 | P.PN ---
Progress Note - Text Progress Note Date: 04/16/21 History of presenting complaint: This is a pleasant 75-year-old patient, follows with Dr. Naman Batista. Chronic stable medical conditions include asthma, hypertension, osteoarthritis. Patient is having dinner last night when she suddenly developed severe epigastric pain. Limited localized there. No radiation to the back. She did vomit care. No fever no chills. She does get reflux symptoms. She is chronically on NSAIDs for arthritis. She initially presented to [facility] for which she was transferred here. She says over a year ago she had a EGD done by Dr. Marlo Almanza was found to have inflammation of the stomach. Denies any fever and chills. Put on IV fluids. GI was consulted. Pending EGD this morning. April 14: EGD done yesterday revealed superficial antral ulcers and linear superficial esophageal tear, with slight oozing. Computed tomography scan of the chest was negative for any air leak. Patient has been placed on eliquis. Getting intermittent lower chest pain. Cardiothoracic surgery consulted. Discussed with Dr. Marlo Almanza. Keep on clear liquids. April 15: Continues to have lower chest pain around 6/10. Clear liquids. Has been up to the bathroom. Did walk in the hallway. No nausea vomiting. Seen by cardiothoracic team yesterday. As a backup. April 16: Doing better. Decreased pain. Advance to full liquid. Has been out of bed. No nausea vomiting. Has been up in a chair. Review of systems: Was done for constitutional, cardiovascular, GI, pulmonary. relevant finding as above Active Medications Al Hydroxide/Mg Hydroxide (Mag Hydrox/Al Hydrox/Simeth 30 Ml Cup) 30 ml PO Q4HR PRN PRN Reason: GI Upset Last Admin: 04/16/21 11:31 Dose: 30 ml Documented by: Albuterol Sulfate (Albuterol Nebulized 2.5 Mg/3 Ml) 2.5 mg INHALATION RT-Q4H PRN PRN Reason: Shortness Of Breath Last Admin: 04/16/21 15:39 Dose: 2.5 mg Documented by: Budesonide/Formoterol Fumarate (Symbicort 160-4.5 Mcg Inhaler) 2 puff INHALATION RT-BID@1000,2200 RAJIV Last Admin: 04/16/21 07:40 Dose: 2 puff Documented by: Doxepin HCl (Doxepin 25 Mg Cap) 50 mg PO [facility] Last Admin: 04/15/21 20:42 Dose: 50 mg Documented by: Sodium Chloride (Saline 0.9%) 1,000 mls @ 110 mls/hr IV .Q9H6M [facility] Last Admin: 04/16/21 06:15 Dose: 110 mls/hr Documented by: Lisinopril (Lisinopril 20 Mg Tab) 40 mg PO [facility] Last Admin: 04/15/21 20:42 Dose: 40 mg Documented by: Montelukast Sodium (Montelukast 10 Mg Tab) 10 mg PO [facility] Last Admin: 04/15/21 20:42 Dose: 10 mg Documented by: Morphine Sulfate (Morphine Sulfate 2 Mg/Ml Syringe) 1 mg IVP Q4HR PRN PRN Reason: Pain Last Admin: 04/16/21 06:14 Dose: 1 mg Documented by: Multivitamins (Multivitamins, Thera 1 Each Tab) 1 each PO DAILY [facility] Last Admin: 04/16/21 07:50 Dose: 1 each Documented by: Naloxone HCl (Naloxone 0.4 Mg/Ml 1 Ml Vial) 0.2 mg IV Q2M PRN PRN Reason: Opioid Reversal Ondansetron HCl (Ondansetron 4 Mg/2 Ml Vial) 4 mg IVP Q8HR PRN PRN Reason: Nausea And Vomiting Pantoprazole Sodium (Pantoprazole 40 Mg Tablet) 40 mg PO AC-BID [facility] Last Admin: 04/16/21 07:50 Dose: 40 mg Documented by: Past medical history to include: Asthma, hypertension, osteoarthritis Social history: . No smoking or alcohol. Family history: Reviewed, noncontributory to presentation Physical examination: VITAL SIGNS: 97.7, 92, 19, 1 65/82, 99% room air GENERAL: reclining in bed, awake not in distress. EYES: Pupils equal. Conjunctiva normal. NECK: JVD not raised; masses not palpable. HEART: First and second heart sounds are normal; no edema. LUNGS: Respiratory rate normal; clear to auscultation. ABDOMEN: Soft, no tenderness, liver spleen not palpable, no masses palpable. PSYCH: Alert and oriented x3; mood and affect normal. MUSCULAR skeletal: Evidence of OA in multiple joints INVESTIGATIONS, reviewed in the clinical context: April 16: White count 6.1 hemoglobin 12.7 potassium 2.2 creatinine 0.5 bun Computed tomography scan of the chest [April 13]: Small pleural effusion. EGD: Superficial esophageal tear. Superficial antral ulcers WBC 8.1 hemoglobin 12.3 platelets 264 potassium 4.1 creatinine 0.58 AST 21 ALT 13 alkaline phosphatase 138 albumin 3.3 Coronavirus [PCR]: Not detected Assessment and plan: -Superficial esophageal tear. No perforation : Pain is improving Computed tomography scan unremarkable. Advance to full liquids -Gastric superficial antral ulcers PPI -Hypokalemia Replace potassium -Moderate persistent asthma, stable . Continue albuterol when necessary, Symbicort 160/4.52 puffs twice a day, Singulair 10 mg daily at bedtime -Bilateral primary osteoarthritis Discontinue meloxicam. Tylenol when necessary -Essential hypertension Enalapril 20 mg daily at bedtime -Chronic urinary stress incontinence Follow clinically -GERD On PPI -Chronic insomnia On doxepin Blood pressure running on the higher side. DC IV fluids. Replace potassium. Check BMP in the morning. Diet advanced to full liquids.
[2021-04-16] MEDS: ENOXAPARIN 40 MG/0.4 ML SYRINGE SQ SCH (16:19)
[2021-04-16] MEDS: MONTELUKAST 10 MG TAB PO SCH (20:24)
[2021-04-16] MEDS: lisinopriL 20 MG TAB PO SCH (20:24)
[2021-04-16] MEDS: DOXEPIN 25 MG CAP PO SCH (20:24)
[2021-04-17 07:49] LABS: African American GFR (CKD) >90 (>60 ml/min/1.73 sqM); Anion Gap 6 mmol/L; Blood Urea Nitrogen 7 mg/dL (7-17); Calcium 9.1 mg/dL (8.4-10.2); Carbon Dioxide 26 mmol/L (22-30); Chloride 104 mmol/L (98-107); Glucose 94 mg/dL (74-99); Non-African American GFR(CKD) >90 (>60 ml/min/1.73 sqM); Sodium 136 mmol/L (137-145)
[2021-04-17 08:07] VITALS: BP 153/83; PULSE 84; RESP 16; TEMP 97.9
[2021-04-17] MEDS: SYMBICORT 160-4.5 MCG INHALER INHALATION SCH (08:13)
[2021-04-17] MEDS: ENOXAPARIN 40 MG/0.4 ML SYRINGE SQ SCH (09:14)
[2021-04-17] MEDS: MULTIVITAMINS, THERA 1 EACH TAB PO SCH (09:14)
[2021-04-17] MEDS: PANTOPRAZOLE 40 MG TABLET PO SCH (09:14)
--- NOTE | 2021-04-17 21:16 | DS ---
DISCHARGE SUMMARY DATE OF SERVICE: 04/17/2021 FINAL DIAGNOSIS: 1. Superficial esophageal ulcer; no perforation. 2. Gastric superficial antral ulcers. 3. Hypokalemia. 4. Moderate persistent asthma, stable. 5. Bilateral primary degenerative joint disease. 6. Hypertension. 7. Chronic stress incontinence: 8. Gastroesophageal reflux disease. DISCHARGE DISPOSITION: The patient will be discharged in stable condition with guarded prognosis. HISTORY OF PRESENT ILLNESS: This 75-year-old woman with a past medical history of multiple medical problems was admitted with abdominal pain. Evaluation showed esophageal tear. The patient was treated symptomatically. Gastroenterology saw the patient during the hospitalization. CT scan of the chest was also done which showed some trace pleural effusion. The patient improved significantly. No chest pain. No palpitations. No fever. On exam, vitals are stable. CARDIOVASCULAR: S1, S2 muffled. ABDOMEN: Soft. NERVOUS SYSTEM: No focal deficit. The patient is keen on going home. The patient will be discharged in stable condition with guarded prognosis. DISCHARGE ADVICE AND MEDICATIONS: 1. Diet is cardiac. 2. Activity limited until followup. 3. Follow up with Dr. Naman Batista in 1-2 days. 4. Follow up with Dr. Almanza as recommended. 5. Colace 100 mg p.o. daily. 6. Doxepin 50 mg p.o. at bedtime. 7. Enalapril at bedtime. 8. Iron sulfate 320 mg p.o. daily. 9. Multivitamins 1 p.o. daily. 10.Singulair 10 mg at bedtime. 11.Symbicort 2 puffs b.i.d. 12.Albuterol p.r.n. 13.Protonix 40 mg b.i.d. Once again, the patient will be discharged in stable condition with guarded prognosis. MMODL / IJN: [id number] / MTDD
== END 2021-04-17 14:00 | disposition home or self-care (01) ==
LOC: EC 19:15 → 6NMEDSUR 19:57
PROVIDERS: ADMIT Hospitalist; ATTEND Hospitalist
DX: R10.9 Unspecified abdominal pain (principal); K22.10 Ulcer of esophagus without bleeding; K29.00 Acute gastritis without bleeding; K21.9 Gastro-esophageal reflux disease without esophagitis; E87.6 Hypokalemia; F51.04 Psychophysiologic insomnia; I10 Essential (primary) hypertension; J45.40 Moderate persistent asthma, uncomplicated; Z20.822 Contact with and (suspected) exposure to COVID-19; K44.9 Diaphragmatic hernia without obstruction or gangrene; M19.91 Primary osteoarthritis, unspecified site; N39.3 Stress incontinence (female) (male); Z79.1 Long term (current) use of non-steroidal anti-inflammatories (NSAID); Z79.51 Long term (current) use of inhaled steroids; Z79.899 Other long term (current) drug therapy; Z87.19 Personal history of other diseases of the digestive system
CPT/HCPCS: 43239; 99285; 96376; 96361 ×2; 96374; 94640 ×8; 88305; 80053; 80048 ×3; 85025 ×3; 87635; 71260; G0378 ×6; J1650 ×2; J2270 ×4; J2704; C9113; Q9967

== ENCOUNTER 2024-11-23 16:35 | Inpatient (IN) | payer MEDICARE ==
[2024-11-23] MEDS: FAMOTIDINE 20 MG/2 ML VIAL IV STA (16:49)
[2024-11-23] MEDS: ONDANSETRON 4 MG/2 ML VIAL IVP STA (16:49)
[2024-11-23] MEDS: SODIUM CHLORIDE 0.9% 1,000 ML IV ONE ×2 (16:50→17:11)
[2024-11-23] MEDS: HEPARIN SODIUM 1,000 UN/ML (10ML VL) IVP STA (16:51)
[2024-11-23] MEDS: ATORVASTATIN 80 MG TAB PO STA (16:55)
--- NOTE | 2024-11-23 16:55 | ED ---
Chest Pain HPI - General Chief Complaint: Chest Pain Stated Complaint: chest pain Time Seen by Provider: 11/23/24 16:40 Source: patient, EMS Mode of arrival: EMS Limitations: no limitations - History of Present Illness Initial Comments: 79-year-old female who presents to the emergency department with epigastric discomfort. States it started this afternoon. She has felt extremely nauseated. She denies hematemesis. She tried to use a lidocaine patch without any improvement in her symptoms. Has had previous history of ulcers but denies that her symptoms feel similar to this. Denies any worsening shortness of breath. She does have a history of asthma and wears 2 L all the time. She denies a ripping or tearing station to her back. No numbness, tingling or weakness in her extremities. Denies any black or bloody stools. Denies any contraindications to anticoagulation. States she recently had a stress test which was normal. She denies ever having a history of heart disease. Patient presents with active symptoms graded 8 out of 10. This is after she was provided with 324 of aspirin, 3 nitro, 25 mg of fentanyl and 4 mg of Zofran by EMS. No fevers chills or cough. No other alleviating, precipitating modifying factors - Related Data Home Medications Medication Instructions Recorded Confirmed Albuterol Inhaler [Ventolin Hfa 1 - 2 puff INHALATION RT-Q4H PRN 04/12/21 04/12/21 Inhaler] Budesonide/Formoterol Fumarate 2 puff INHALATION RT-BID@1000,2200 04/12/21 04/12/21 [Symbicort 160-4.5 Mcg Inhaler] Docusate [Colace] 100 mg PO DAILY 04/12/21 04/12/21 Doxepin HCl 50 mg PO HS@2200 04/12/21 04/12/21 Enalapril Maleate 20 mg PO HS@2200 04/12/21 04/12/21 Ferrous Sulfate [Iron (65 MG 325 mg PO DAILY 04/12/21 04/12/21 Elemental)] Montelukast [Singulair] 10 mg PO HS@1800 04/12/21 04/12/21 Multivitamins, Thera [Multivitamin 1 tab PO DAILY 04/12/21 04/12/21 (formulary)] Previous Rx's Medication Instructions Recorded Pantoprazole [Protonix] 40 mg PO AC-BID #60 tab 04/17/21 Allergies Allergy/AdvReac Type Severity Reaction Status Date / Time sulfamethoxazole Allergy Intermediate Nausea Verified 11/23/24 16:42 [From Bactrim] trimethoprim [From Bactrim] Allergy Intermediate Nausea Verified 11/23/24 16:42 prednisone Allergy Unknown Verified 11/23/24 16:42 tetracycline Allergy Rash/Hives Verified 11/23/24 16:42 rynatan Allergy Rash/Hives Uncoded 11/23/24 16:42 Review of Systems ROS Statement: Those systems with pertinent positive or pertinent negative responses have been documented in the HPI. ROS Other: All systems not noted in ROS Statement are negative. Past Medical History Past Medical History: Asthma, GERD/Reflux, Hypertension, Osteoarthritis (OA) History of Any Multi-Drug Resistant Organisms: None Reported Past Surgical History: No Surgical Hx Reported Past Anesthesia/Blood Transfusion Reactions: No Reported Reaction Past Psychological History: No Psychological Hx Reported Smoking Status: Never smoker Past Alcohol Use History: None Reported Past Drug Use History: None Reported General Exam Limitations: no limitations Course Vital Signs 11/23/24 11/23/24 11/23/24 16:36 16:47 16:50 Temperature 97.7 F Pulse Rate 88 78 79 Respiratory 20 20 30 H Rate Blood Pressure 101/59 92/54 89/52 O2 Sat by Pulse 96 96 96 Oximetry Chest Pain MDM - MDM Was pt. sent in by a medical professional or institution (KENIA Doe, [employer], urgent care, hospital, or skilled nursing...) When possible be specific @ -[No] Did you speak to anyone other than the patient for history (EMS, parent, family, police, friend...)? What history was obtained from this source @ -[No] Did you review nursing and triage notes (agree or disagree)? Why? @ -[I reviewed and agree with nursing and triage notes] Were old charts reviewed (outside hosp., previous admission, EMS record, old EKG, old radiological studies, urgent care reports/EKG's, skilled nursing records)? Report findings @ -[No old charts were reviewed] Differential Diagnosis (chest pain, altered mental status, abdominal pain women, abdominal pain men, vaginal bleeding, weakness, fever, dyspnea, syncope, headache, dizziness, GI bleed, back pain, seizure, CVA, palpatations, mental health, musculoskeletal)? @ -[not applicable] EKG interpreted by me (3pts min.). @ - Prehospital EKG demonstrates ST elevation in 2, 3, aVF as well as V3. Reciprocal depression 1 and aVL EKG done at 1640 demonstrates sinus rhythm with a rate of 81. CA interval 165. QRS 78. QTc of 430. Second EKG done at [address] elevation in V3 with hyperacuity in V4 through V6. Some reciprocal depression in 1 and aVL X-rays interpreted by me (1pt min.). @ -[None done] CT interpreted by me (1pt min.). @ -[None done] U/S interpreted by me (1pt. min.). @ -[None done] What testing was considered but not performed or refused? (CT, X-rays, U/S, labs)? Why? @ -[None] What meds were considered but not given or refused? Why? @ -[None] Did you discuss the management of the patient with other professionals (professionals i.e. , PA, [employer]ER, lab, RT, psych nurse, outreach and education social worker, bush regenerator, teacher, customer service officer, case planner)? Give summary @ -[No] Was smoking cessation discussed for >3mins.? @ -[No] Was critical care preformed (if so, how long)? @ -[No] Were there social determinants of health that impacted care today? How? (Homelessness, low income, unemployed, alcoholism, drug addiction, transportation, low edu. Level, literacy, decrease access to med. care, fpc, rehab)? @ -[No] Was there de-escalation of care discussed even if they declined (Discuss DNR or withdrawal of care, Hospice)? DNR status @ -[No] What co-morbidities impacted this encounter? (DM, HTN, Smoking, COPD, CAD, Cancer, CVA, ARF, Chemo, Hep., AIDS, mental health diagnosis, sleep apnea, morbid obesity)? @ -[None] Was patient admitted / discharged? Hospital course, mention meds given and route, prescriptions, significant lab abnormalities, going to OR and other pertinent info. @ -[hospital course] Undiagnosed new problem with uncertain prognosis? @ -[No] Drug Therapy requiring intensive monitoring for toxicity (Heparin, Nitro, Insulin, Cardizem)? @ -[No] Were any procedures done? @ -[No] Diagnosis/symptom? @ -[default] Acute, or Chronic, or Acute on Chronic? @ -[default] Uncomplicated (without systemic symptoms) or Complicated (systemic symptoms)? @ -[default] Side effects of treatment? @ -[No] Exacerbation, Progression, or Severe Exacerbation? @ -[No] Poses a threat to life or bodily function? How? (Chest pain, [place], [place], pneumonia, PE, COPD, DKA, ARF, appy, cholecystitis, CVA, Diverticulitis, Homicidal, Suicidal, threat to staff... and all critical care pts) @ -[No] Disposition Clinical Impression: ST elevation myocardial infarction (STEMI), Epigastric pain Disposition: ADMITTED IP TO THIS [facility] Condition: Serious Is patient prescribed a controlled substance at d/c from ED?: No Referrals: Naman Batista MD [Primary Care Provider] - 1-2 days Time of Disposition: 16:56 Decision to Admit Reason: Admit from EC Decision Date: 11/23/24 Decision Time: 16:56
[2024-11-23] MEDS ORDERED: NALOXONE 0.4 MG/ML 1 ML VIAL IV PRN (16:57)
--- NOTE | 2024-11-23 16:57 | XR ---
EXAMINATION TYPE: XR chest 1V portable DATE OF EXAM: 11/23/2024 4:51 PM COMPARISON: 06/13/2024 CLINICAL INDICATION: Female, 79 years old with history of chest pain, TECHNIQUE: XR chest 1V portable views of the chest are obtained. FINDINGS: Demonstrated are scattered senescent parenchymal change. Increased density left infrahilar region could reflect developing infiltrate. Correlate clinically. The heart is stable. Hilar and mediastinal structures are within normal limits. Degenerative changes are seen of the dorsal spine. IMPRESSION: 1. Increased density left infrahilar region could reflect developing infiltrate. Correlate clinicall y. [facility], , 11/23/2024 4:55 PM
[2024-11-23 16:58] LABS: Basophils # (A) 0.06 10*3/uL (0.00-0.10); Basophils % (A) 0.3 %; HCT 38.4 % (37.2-46.3); HGB 12.8 g/dL (12.0-15.0); Lymphocytes # (A) 0.72 10*3/uL (0.90-5.00); Lymphocytes % (A) 3.5 %; MCH 28.1 pg (27.0-32.0); MCHC 33.3 g/dL (32.0-37.0); MCV 84.2 fL (80.0-97.0); Mean Platelet Volume 9.2 fL (9.5-12.2); Monocytes # (A) 1.19 10*3/uL (0.20-1.00); Monocytes % (A) 5.8 %; Neutrophils # (A) 18.44 10*3/uL (1.80-7.70); Neutrophils % (A) 89.8 %; Platelet Count 325 10*3/uL (140-440); RBC 4.56 10*6/uL (4.10-5.20); RDW 21.9 % (11.5-14.5); WBC 20.53 10*3/uL (4.50-10.00)
[2024-11-23 17:15] LABS: Prothrombin Time 10.8 sec (10.0-12.5)
[2024-11-23 17:18] LABS: ALT 21 U/L (4-34); AST 31 U/L (14-36); African American GFR (CKD) >90 (>60 ml/min/1.73 sqM); Albumin 3.4 g/dL (3.5-5.0); Alkaline Phosphatase 122 U/L (38-126); Anion Gap 10 mmol/L; Blood Urea Nitrogen 18 mg/dL (7-17); Calcium 9.5 mg/dL (8.4-10.2); Carbon Dioxide 25 mmol/L (22-30); Chloride 96 mmol/L (98-107); Glucose 141 mg/dL (74-99); Lipase 20 U/L (23-300); Magnesium 1.7 mg/dL (1.6-2.3); Non-African American GFR(CKD) 86 (>60 ml/min/1.73 sqM); Partial Thromboplastin Time 20.2 sec (22.0-30.0); Potassium 4.1 mmol/L (3.5-5.1); Sodium 131 mmol/L (137-145); Total Protein 5.7 g/dL (6.3-8.2)
[2024-11-23] MEDS: MIDAZOLAM 2 MG/2 ML VIAL IVP ONE (17:24)
[2024-11-23] MEDS: fentaNYL (PF) 50 MCG/ML 2 ML AMP IVP ONE (17:24)
[2024-11-23] MEDS: LIDOCAINE 1% INJ 10MG/ML (20 ML MDV) SQ ONE ×2 (17:24→17:26)
[2024-11-23 17:25] LABS: NT-Pro-B-Type Natriuretic Pept 150 pg/mL
[2024-11-23] MEDS: TICAGRELOR 90 MG TAB PO ONE (17:45)
[2024-11-23] MEDS: HEPARIN SODIUM 1,000 UN/ML (10ML VL) IV ONE (17:46)
[2024-11-23] MEDS: NITROGLYCERIN 1000MCG/10ML SYRINGE INTRACORON ONE (17:54)
[2024-11-23] MEDS: IOPAMIDOL-370 100ML BTL INJ ONE ×2 (17:59→18:13)
[2024-11-23] MEDS ORDERED: NITROGLYCERIN SL TABS 0.4 MG TAB SUBLINGUAL PRN (18:22)
[2024-11-23] MEDS ORDERED: RX INFO: IV CONTRAST WAS GIVEN 1 EACH MISC MISCELLANE PRN (18:22)
[2024-11-23] MEDS ORDERED: ATROPINE SULFATE 0.1 MG/ML 10ML SYRINGE IV PRN (18:22)
[2024-11-23] MEDS ORDERED: MAG HYDROX/AL HYDROX/SIMETH 30 ML CUP PO PRN (18:22)
[2024-11-23] MEDS ORDERED: ZOLPIDEM 5 MG TAB PO PRN (18:22)
--- NOTE | 2024-11-23 18:22 | P.PRCINT ---
Percutaneous Coronary Int. - Percutaneous Coronary Intervention Percutaneous Coronary Intervention: PROCEDURES PERFORMED: Left coronary angiography, PCI of mid circumflex with a 2.5 x 18 mm Xience drug-eluting stent postdilated with 2.5 mm noncompliant balloon INDICATION: STEMI CONSENT: The risks, benefits and alternative therapies for the above-mentioned procedure and for both sedation/analgesia as well as necessary blood product administration, if indicated, as they pertain to this patient were dicussed. The patient has indicated understanding and acceptance of the risks and procedures discussed. PROCEDURE: After the risks, benefits and alternatives of the above mentioned procedure explained in detail with the patient, informed consent was obtained. Patient was taken to the catheterization lab and prepped and draped in usual fashion. A 6-Bel[place]an sheath had previously been placed in the right femoral artery. The decision was made to perform PCI of the circumflex. A 6 [place]an CLS 4.0 guide was too big and therefore a 6 [place] CLS 3.5 guide catheter was used to engage the left main. A 0.014 BMW wire was placed in the OM1 branch and an additional 0.014 whisper wire was advanced in the distal circumflex. Predilation was performed with a 2.0 mm balloon. Next a 2.5 x 18 mm drug- eluting stent was placed. The proximal portion of the stent was postdilated with a 2.5 mm noncompliant balloon. Final angiograms were performed. Preintervention there was 100% stenosis with SANDEEP-0 flow and postintervention there was less than 10% stenosis with SANDEEP-3 flow. The right femoral angiogram showed adequate anatomy for closure and a 6Fr Angioseal was placed with hemostasis achieved. The patient tolerated the procedure well. Patient was transported back to the post catheterization holding area in stable condition. Conscious Sedation: Patient was monitored under the direct supervision of myself for conscious sedation using Versed and fentanyl for a total duration of 26 minutes HEMODYNAMICS: Aorta: 118/54 SELECTIVE CORONARY ARTERIOGRAPHY: LEFT MAIN: The left main is a large caliber vessel which bifurcates into the LAD and circumflex. There is no significant stenosis. LEFT ANTERIOR DESCENDING CORONARY ARTERY: LAD is a large caliber vessel which wraps around to the apex. There is diffuse proximal to mid LAD 30 to 40% stenosis. LEFT CIRCUMFLEX CORONARY ARTERY: Left circumflex is a moderate caliber vessel which gives off a moderate caliber OM1 branch and then the distal circumflex through a small caliber OM 2 branch is 100% occluded. RIGHT CORONARY ARTERY: The right coronary artery was not imaged FINAL IMPRESSION: 1. CAD as described above including proximal to mid LAD 30 to 40% stenosis and 100% mid circumflex stenosis just after OM1 branch 2. Status post PCI of mid circumflex with a 2.5 x 18 mm Xience drug-eluting stent postdilated with 2.5 mm noncompliant balloon PLAN: 1. Aggressive risk factor modification per most recent ACC/AHA guidelines. 2. Continue dual antiplatelets with aspirin and Brilinta for 12 months.
[2024-11-23 18:37] LABS: Glucose,Whole Blood 131 mg/dL (70-110)
[2024-11-23] MEDS: METOPROLOL TARTRATE 12.5 MG TAB PO SCH (21:03)
[2024-11-23] MEDS: TICAGRELOR 90 MG TAB PO SCH (21:03)
[2024-11-23] MEDS: SODIUM CHLORIDE 0.9% 1,000 ML in EMPTY BAG 1 BAG IV SCH (21:04)
[2024-11-23] MEDS: ATORVASTATIN 80 MG TAB PO SCH (21:04)
--- NOTE | 2024-11-24 04:02 | CONS ---
CONSULTATION CHIEF COMPLAINT: Chest pain. HISTORY OF PRESENT ILLNESS: This is a 79-year-old lady with history of COPD, hypertension, dyslipidemia, who presented to hospital primarily with epigastric discomfort. The initial EKG in the field had some ST-segment elevation in the inferior leads. The EKG done in the hospital revealed ST-segment elevation in the anterolateral leads consistent with anterolateral myocardial infarction, probably related to an acute occlusion of the circumflex coronary artery. ER doctor had called me and activated the field laborer, and I met the patient in the field laborer. Her symptoms were improving. EKG also improved at the time of my evaluation, and labs were pending. PAST MEDICAL HISTORY: Significant for COPD, gastroesophageal reflux disease and dyslipidemia. MEDICATIONS: As charted. ALLERGIES: As charted. FAMILY HISTORY: Negative for premature coronary artery disease. SOCIAL HISTORY: Negative for smoking, EtOH abuse, or drug abuse. REVIEW OF SYSTEMS: 14 out of 14 review of systems has been performed. Pertinents are as documented. PHYSICAL EXAMINATION: VITAL SIGNS: She is stable hemodynamically. NECK: There is no jugular venous distention. Carotid upstroke is normal. There is no bruit. CHEST: Reveals good air entry bilaterally. HEART: Reveals first and second heart sounds. No gallop. ABDOMEN: Soft, nontender. EXTREMITIES: Did not reveal any edema. Peripheral pulses are felt. LABORATORY DATA: Labs are pending. ASSESSMENT: Acute anterolateral myocardial infarction. PLAN: The patient will undergo emergent cardiac catheterization with a view to performing primary angioplasty. MMODL / IJN: [id number] /
--- NOTE | 2024-11-24 04:02 | CC ---
CARDIAC CATHETERIZATION REPORT INDICATION: Acute ST-segment elevation AK. PROCEDURE NOTE: After obtaining informed consent, left heart catheterization and coronary angiogram were performed via the right femoral artery using standard Elham catheters. The patient tolerated the procedure well without any obvious immediate complications. Total sedation time was 15 minutes. I initially attempted right radial artery access. While I was able to pass a Glidewire through the needle, I had difficulty passing the sheath, getting adequate return through it; hence, I decided to proceed with the femoral cath. Procedure was completed uneventfully. FINDINGS: 1. Hemodynamics: Left ventricular end-diastolic pressure is 17 mm. There is no significant gradient across the aortic valve. 2. Left ventriculogram: Left ventriculogram is not performed. 3. Angiographic data: a.Right coronary artery: Right coronary artery is a large-dominant vessel and is free of significant stenosis. b.Left main coronary artery appears calcified, but is free of stenosis. Divides into left anterior descending coronary artery and circumflex coronary artery. c.Circumflex coronary artery gives off large-caliber OM branches and is totally occluded. CONCLUSIONS: Acute occlusion of the distal circumflex coronary artery. PLAN: The patient will undergo angioplasty with stent placement of the same by Dr. Shafer, the on-call distribution spec. The patient presented with acute AK around 4:35. laborer fryer farm was activated at 4:41, and the patient was ready for cardiac catheterization around 5:20. MMODL / IJN: [id number] /
[2024-11-24 05:56] LABS: Basophils # (A) 0.01 10*3/uL (0.00-0.10); Basophils % (A) 0.1 %; Eosinophils # (A) 0.11 10*3/uL (0.04-0.35); HCT 34.7 % (37.2-46.3); HGB 10.8 g/dL (12.0-15.0); Lymphocytes # (A) 1.04 10*3/uL (0.90-5.00); Lymphocytes % (A) 9.1 %; MCH 26.9 pg (27.0-32.0); MCHC 31.1 g/dL (32.0-37.0); MCV 86.3 fL (80.0-97.0); Mean Platelet Volume 9.2 fL (9.5-12.2); Monocytes # (A) 0.74 10*3/uL (0.20-1.00); Monocytes % (A) 6.4 %; Neutrophils # (A) 9.54 10*3/uL (1.80-7.70); Neutrophils % (A) 83.1 %; Platelet Count 303 10*3/uL (140-440); RBC 4.02 10*6/uL (4.10-5.20); RDW 21.8 % (11.5-14.5); WBC 11.48 10*3/uL (4.50-10.00)
[2024-11-24 06:12] LABS: ALT 17 U/L (4-34); AST 25 U/L (14-36); African American GFR (CKD) >90 (>60 ml/min/1.73 sqM); Albumin 2.7 g/dL (3.5-5.0); Alkaline Phosphatase 106 U/L (38-126); Anion Gap 6 mmol/L; Blood Urea Nitrogen 14 mg/dL (7-17); Carbon Dioxide 24 mmol/L (22-30); Chloride 104 mmol/L (98-107); Glucose 91 mg/dL (74-99); Non-African American GFR(CKD) >90 (>60 ml/min/1.73 sqM); Potassium 4.2 mmol/L (3.5-5.1); Sodium 134 mmol/L (137-145); Total Bilirubin 1.2 mg/dL (0.2-1.3)
[2024-11-24] MEDS: ASPIRIN 81 MG PO SCH (08:18)
[2024-11-24] MEDS ORDERED: ALBUTEROL NEBULIZED 2.5 MG/3 ML INHALATION PRN (11:06)
--- NOTE | 2024-11-24 11:10 | P.HPIM ---
History of Present Illness H&P Date: 11/23/24 Chief Complaint: Chest pain Pleasant 79-year-old patient, with chronic medical conditions include GERD, urine incontinence, hypertension, osteoarthritis, asthma, chronic insomnia,. Patient was seen later in the day after a cardiac catheterization. Early in the afternoon she started having chest pressure. Nauseated. Her symptoms did not feel like the ulcer. There is no shortness of breath. No radiation. Does wear 2 L of oxygen at home. No perspiration. No dizziness no lightheadedness. Per the EMS patient received aspirin nitro x 325 mg of fentanyl and Zofran. Earlier today she underwent cardiac catheterization by Dr. Jayda Almanza. Following which she underwent PCI of the mid circumflex which 100% stenosis. Postprocedure in the ICU. No further chest pain. Laying in bed. Comfortable. Review of systems: GEN.: Tired EYES: None HEENT: None NECK: None RESPIRATORY: None CARDIOVASCULAR: As above e GASTROINTESTINAL: None GENITOURINARY: None MUSCULOSKELETAL: [Some joint pains LYMPHATICS: None HEMATOLOGICAL: None PSYCHIATRY: None NEUROLOGICAL: None Social history: Lives with her . Denies any history of smoking alcohol. Physical examination: VITAL SIGNS: Afebrile, 80, 12, 129 x 69, 98% room air GENERAL: BMI 26.6, lying bed awake comfortable. EYES: Pupils equal. Conjunctiva ramon l. HEENT: External appearance of nose and ears normal, oral cavity grossly normal. NECK: JVD not raised; masses not palpable. HEART: First and second heart sounds are normal; no edema. LUNGS: Respiratory rate normal; clear to auscultation. ABDOMEN: Soft, nontender, liver spleen not palpable, no masses palpable. PSYCH: Alert and oriented x3; mood and affect ramon l. MUSCULOSKELETAL:No Clubbing/cyanosis;muscles-grossly intact. OA NEUROLOGICAL: Cranial nerves grossly intact; no facial asymmetry, power and sensation grossly intact. LYMPHATICS: No lymph nodes palpable in the axilla and neck INVESTIGATIONS, reviewed in the clinical context: November 23: White count 20.5 hemoglobin 12.8 platelets 325 sodium 131 potassium 4.1 BUN 18 creatinine 0.63 Troponin I less than 0.012 EKG tracing personally reviewed by me-possible ST elevation in V3-V5 Chest x-ray film personally reviewed by me-possible chronic infiltrate Assessment plan: - Acute myocardial infarction. Patient undergone stent to the circumflex. Cardiac catheterization - S Ar[facility] and stenting by Dr. Hollis Gonzalez. Lipitor - Coronary artery disease Left main coronary artery appears calcified but free of stenosis. Circumflex coronary artery gives of large caliber OM branches totally occluded. Intervention as above - Primary osteoarthritis multiple joints Hold off meloxicam for now. Tylenol as needed - Moderate persistent asthma Ventolin as needed. Trelegy Ellipta inhaler. Singulair - Peptic ulcer disease with GERD Protonix - Essential hypertension Lopressor. - Chronic insomnia Doxepin - Full code Care was discussed with the patient. Follow with cardiology. Past Medical History Past Medical History: Asthma, GERD/Reflux, Hypertension, Osteoarthritis (OA) History of Any Multi-Drug Resistant Organisms: None Reported Past Surgical History: No Surgical Hx Reported Past Anesthesia/Blood Transfusion Reactions: No Reported Reaction Past Psychological History: No Psychological Hx Reported Smoking Status: Never smoker Past Alcohol Use History: None Reported Past Drug Use History: None Reported - Past Family History Mother History Unknown: Yes Medications and Allergies Home Medications Medication Instructions Recorded Confirmed Type Albuterol Inhaler [Ventolin Hfa 2 puff INHALATION RT-QID PRN 04/12/21 11/23/24 History Inhaler] Doxepin HCl 50 mg PO HS 04/12/21 11/23/24 History Enalapril Maleate 20 mg PO HS 04/12/21 11/23/24 History Montelukast [Singulair] 10 mg PO HS 04/12/21 11/23/24 History Clotrimazole Cream [Lotrimin Cream] 1 applic TOPICAL DAILY 11/23/24 11/23/24 History Fluticasone/Umeclidin/Vilanter 1 puff INHALATION RT-DAILY 11/23/24 11/23/24 History [Trelegy Ellipta 200-62.5-25] Meloxicam 7.5 mg PO DAILY 11/23/24 11/23/24 History Pantoprazole [Protonix] 40 mg PO BID 11/23/24 11/23/24 History Allergies Allergy/AdvReac Type Severity Reaction Status Date / Time sulfamethoxazole Allergy Intermediate Nausea Verified 11/23/24 19:23 [From Bactrim] trimethoprim [From Bactrim] Allergy Intermediate Nausea Verified 11/23/24 19:23 prednisone Allergy Unknown Verified 11/23/24 19:23 tetracycline Allergy Rash/Hives Verified 11/23/24 19:23 rynatan Allergy Rash/Hives Uncoded 11/23/24 16:42 Physical Exam Vitals: Vital Signs Temp Pulse Resp BP Pulse Ox 11/23/24 19:00 78 124/69 99 11/23/24 18:37 80 23 124/69 11/23/24 17:06 85 20 119/61 98 11/23/24 17:01 85 20 121/62 97 11/23/24 16:50 79 30 H 89/52 96 11/23/24 16:47 78 20 92/54 96 11/23/24 16:36 97.7 F 88 20 101/59 96 Intake and Output 11/23/24 11/23/24 11/23/24 06:59 14:59 22:59 Intake Total 670 Balance 670 Intake: IV 600 Intake, IV Titration 70 Amount Sodium Chloride 0.9% 1, 70 000 ml In Empty Bag 1 bag @ 1 ML/KG/HR 70.307 mls/ hr IV .[id number] [facility] Rx#: [id number] Other: Weight 70.307 kg Results CBC & Chem 7: 11/24/24 05:18 11/24/24 05:18 Labs: Abnormal Lab Results - Last 24 Hours (Table) 11/23/24 11/23/24 11/23/24 Range/Units 16:42 16:42 16:42 WBC 20.53 H (4.50-10.00) 10*3/uL MPV 9.2 L (9.5-12.2) fL Immature Gran # 0.12 H (0.00-0.04) 10*3/uL Neutrophils # 18.44 H (1.80-7.70) 10*3/uL Lymphocytes # 0.72 L (0.90-5.00) 10*3/uL Monocytes # 1.19 H (0.20-1.00) 10*3/uL Eosinophils # 0.00 L (0.04-0.35) 10*3/uL APTT 20.2 L (22.0-30.0) sec Sodium 131 L (137-145) mmol/L Chloride 96 L (98-107) mmol/L BUN 18 H (7-17) mg/dL Glucose 141 H (74-99) mg/dL POC Glucose (mg/dL) (70-110) mg/dL Total Protein 5.7 L (6.3-8.2) g/dL Albumin 3.4 L (3.5-5.0) g/dL Lipase 20 L (23-300) U/L 11/23/24 Range/Units 18:35 WBC (4.50-10.00) 10*3/uL MPV (9.5-12.2) fL Immature Gran # (0.00-0.04) 10*3/uL Neutrophils # (1.80-7.70) 10*3/uL Lymphocytes # (0.90-5.00) 10*3/uL Monocytes # (0.20-1.00) 10*3/uL Eosinophils # (0.04-0.35) 10*3/uL APTT (22.0-30.0) sec Sodium (137-145) mmol/L Chloride (98-107) mmol/L BUN (7-17) mg/dL Glucose (74-99) mg/dL POC Glucose (mg/dL) 131 H (70-110) mg/dL Total Protein (6.3-8.2) g/dL Albumin (3.5-5.0) g/dL Lipase (23-300) U/L
[2024-11-24] MEDS: TIOTROPIUM 2.5 MCG INHALER INHALATION SCH (12:05)
[2024-11-24] MEDS: ENOXAPARIN 40 MG/0.4 ML SYRINGE SQ SCH (12:08)
[2024-11-24] MEDS: PANTOPRAZOLE 40 MG TABLET PO SCH (12:08)
--- NOTE | 2024-11-24 14:55 | P.PN ---
Progress Note - Text Progress Note Date: 11/24/24 Chief Complaint: Chest pain Pleasant 79-year-old patient, with chronic medical conditions include GERD, urine incontinence, hypertension, osteoarthritis, asthma, chronic insomnia,. Patient was seen later in the day after a cardiac catheterization. Early in the afternoon she started having chest pressure. Nauseated. Her symptoms did not feel like the ulcer. There is no shortness of breath. No radiation. Does wear 2 L of oxygen at home. No perspiration. No dizziness no lightheadedness. Per the EMS patient received aspirin nitro x 325 mg of fentanyl and Zofran. Earlier today she underwent cardiac catheterization by Dr. Jayda Almanza. Following which she underwent PCI of the mid circumflex which 100% stenosis. Postprocedure in the ICU. No further chest pain. Laying in bed. Comfortable. November 24: ICU. Has been up to the bathroom. Did walk in the room. No further cardiac symptoms. Active Medications Al Hydroxide/Mg Hydroxide (Mag Hydrox/Al Hydrox/Simeth 30 Ml Cup) 30 ml PO Q4HR PRN PRN Reason: Heartburn Albuterol Sulfate (Albuterol Nebulized 2.5 Mg/3 Ml) 2.5 mg INHALATION RT-QID PRN PRN Reason: Shortness Of Breath Aspirin (Aspirin 81 Mg) 81 mg PO DAILY [facility] Last Admin: 11/24/24 08:18 Dose: 81 mg Atorvastatin Calcium (Atorvastatin 80 Mg Tab) 80 mg PO HS [facility] Last Admin: 11/23/24 21:04 Dose: 80 mg Atropine Sulfate (Atropine Sulfate 0.1 Mg/Ml 10ml Syringe) 0.5 mg IV ONCE PRN PRN Reason: Symptomatic Bradycardia Budesonide/Formoterol Fumarate (Symbicort 160-4.5 Mcg Inhaler) 2 puff INHALATION RT-BID [facility] Doxepin HCl (Doxepin 25 Mg Cap) 50 mg PO [facility] Enoxaparin Sodium (Enoxaparin 40 Mg/0.4 Ml Syringe) 40 mg SQ DAILY [facility] Last Admin: 11/24/24 12:08 Dose: 40 mg Sodium Chloride 1,000 ml/ IV (Solution) 1,000 mls @ 70.307 mls/hr IV .[id number] [facility] Last Admin: 11/23/24 21:04 Dose: 70.307 mls/hr Lisinopril (Lisinopril 20 Mg Tab) 40 mg PO [facility] Metoprolol Tartrate (Metoprolol Tartrate 12.5 Mg Tab) 12.5 mg PO BID [facility] Last Admin: 11/24/24 08:16 Dose: 12.5 mg Miscellaneous Information (Rx Info: Iv Contrast Was Given 1 Each Misc) 1 each MISCELLANE DAILY PRN PRN Reason: Per Protocol Stop: 11/25/24 18:22 Montelukast Sodium (Montelukast 10 Mg Tab) 10 mg PO HS [facility] Naloxone HCl (Naloxone 0.4 Mg/Ml 1 Ml Vial) 0.2 mg IV Q2M PRN PRN Reason: Opioid Reversal Nitroglycerin (Nitroglycerin Sl Tabs 0.4 Mg Tab) 0.4 mg SUBLINGUAL Q5M PRN PRN Reason: Chest Pain Pantoprazole Sodium (Pantoprazole 40 Mg Tablet) 40 mg PO AC-BID [facility] Last Admin: 11/24/24 12:08 Dose: 40 mg Ticagrelor (Ticagrelor 90 Mg Tab) 90 mg PO BID [facility]; Protocol Last Admin: 11/24/24 08:16 Dose: 90 mg Tiotropium [place] (Tiotropium 2.5 Mcg Inhaler) 2 puff INHALATION RT-DAILY [facility] Last Admin: 11/24/24 12:05 Dose: Not Given Zolpidem Tartrate (Zolpidem 5 Mg Tab) 5 mg PO HS PRN PRN Reason: Insomnia Social history: Lives with her . Denies any history of smoking alcohol. Physical examination: VITAL SIGNS: 98, 80, 22, 157 x 90, 96% room air GENERAL: BMI 26.6, comfortable EYES: Pupils equal. Conjunctiva ramon l. HEENT: External appearance of nose and ears normal, oral cavity grossly normal. NECK: JVD not raised; masses not palpable. HEART: First and second heart sounds are normal; no edema. LUNGS: Respiratory rate normal; clear to auscultation. ABDOMEN: Soft, nontender, liver spleen not palpable, no masses palpable. PSYCH: Alert and oriented x3; mood and affect ramon l. MUSCULOSKELETAL:No Clubbing/cyanosis;muscles-grossly intact. OA INVESTIGATIONS, reviewed in the clinical context: November 24: White count 11.4 hemoglobin 10.8 platelets 303 potassium 4.2 creatinine 0.55 November 23: White count 20.5 hemoglobin 12.8 platelets 325 sodium 131 potassium 4.1 BUN 18 creatinine 0.63 Troponin I less than 0.012 EKG tracing personally reviewed by me-possible ST elevation in V3-V5 Chest x-ray film personally reviewed by me-possible chronic infiltrate Assessment plan: - Acute myocardial infarction. Patient undergone stent to the circumflex. Cardiac catheterization - Jayda Almanza and stenting by Dr. Hollis Jones Brilinta. Lipitor - Coronary artery disease Left main coronary artery appears calcified but free of stenosis. Circumflex coronary artery gives of large caliber OM branches totally occluded. Intervention as above - Primary osteoarthritis multiple joints Hold off meloxicam for now. Tylenol as needed - Moderate persistent asthma Ventolin as needed. Trelegy Ellipta inhaler. Singulair - Peptic ulcer disease with GERD Protonix - Essential hypertension Lopressor. - Chronic insomnia Doxepin - Full code Discussed with patient. Increase activity. Past Medical History Past Medical History: Asthma, GERD/Reflux, Hypertension, Osteoarthritis (OA) History of Any Multi-Drug Resistant Organisms: None Reported Past Surgical History: No Surgical Hx Reported Past Anesthesia/Blood Transfusion Reactions: No Reported Reaction Past Psychological History: No Psychological Hx Reported Smoking Status: Never smoker Past Alcohol Use History: None Reported Past Drug Use History: None Reported
[2024-11-24] MEDS: SYMBICORT 160-4.5 MCG INHALER INHALATION SCH (19:56)
[2024-11-24] MEDS: MONTELUKAST 10 MG TAB PO SCH (20:01)
[2024-11-24] MEDS: lisinopriL 20 MG TAB PO SCH (20:01)
[2024-11-24] MEDS: DOXEPIN 25 MG CAP PO SCH (20:02)
[2024-11-25 12:08] VITALS: BMI 26.6
[2024-11-25 12:23] VITALS: BP 145/80; PULSE 80; RESP 14; TEMP 98
--- NOTE | 2024-11-25 21:45 | P.DS ---
Providers Date of admission: 11/23/24 16:58 Expected date of discharge: 11/25/24 Attending physician: Hossein Hay Consults: 11/23/24 16:57 Consult Physician Stat Consulting Provider: Irving Reyes Consult Reason/Comments: chest pain, STEMI Do you want consulting provider notified?: Already Contacted 11/23/24 18:22 Consult Physician Routine Consulting Provider: Cardiology Amy Consult Reason/Comments: Post Interventional Patient Do you want consulting provider notified?: Already Contacted Primary care physician: Naman [facility] Course: Chief Complaint: Chest pain Pleasant 79-year-old patient, with chronic medical conditions include GERD, urine incontinence, hypertension, osteoarthritis, asthma, chronic insomnia,. Patient was seen later in the day after a cardiac catheterization. Early in the afternoon she started having chest pressure. Nauseated. Her symptoms did not feel like the ulcer. There is no shortness of breath. No radiation. Does wear 2 L of oxygen at home. No perspiration. No dizziness no lightheadedness. Per the EMS patient received aspirin nitro x 325 mg of fentanyl and Zofran. Earlier today she underwent cardiac catheterization by Dr. Jayda Almanza. Following which she underwent PCI of the mid circumflex which 100% stenosis. Postprocedure in the ICU. No further chest pain. Laying in bed. Comfortable. November 24: ICU. Has been up to the bathroom. Did walk in the room. No further cardiac symptoms. November 25: Seen in the ICU. Did ambulate. No cardiac symptoms. Nurse informed me that patient been cleared by cardiology. Follow-up with Dr. Jayda Almanza Social history: Lives with her . Denies any history of smoking alcohol. Physical examination: VITAL SIGNS: 98, 80, 14, 1 4580, 95% room air GENERAL: BMI 26.6, comfortable EYES: Pupils equal. Conjunctiva ramon l. HEENT: External appearance of nose and ears normal, oral cavity grossly normal. NECK: JVD not raised; masses not palpable. HEART: First and second heart sounds are normal; no edema. LUNGS: Respiratory rate normal; clear to auscultation. ABDOMEN: Soft, nontender, liver spleen not palpable, no masses palpable. PSYCH: Alert and oriented x3; mood and affect ramon l. MUSCULOSKELETAL:No Clubbing/cyanosis;muscles-grossly intact. OA INVESTIGATIONS, reviewed in the clinical context: November 24: White count 11.4 hemoglobin 10.8 platelets 303 potassium 4.2 creatinine 0.55 November 23: White count 20.5 hemoglobin 12.8 platelets 325 sodium 131 potassium 4.1 BUN 18 creatinine 0.63 Troponin I less than 0.012 EKG tracing personally reviewed by me-possible ST elevation in V3-V5 Chest x-ray film personally reviewed by me-possible chronic infiltrate Assessment plan: - Acute myocardial infarction. Patient undergone stent to the circumflex. Cardiac catheterization - Jayda Almanza and stenting by Dr. Shafer Aspirin. Brilinta. Lipitor - Coronary artery disease Left main coronary artery appears calcified but free of stenosis. Circumflex coronary artery gives of large caliber OM branches totally occluded. Intervention as above - Primary osteoarthritis multiple joints Meloxicam discontinued Tylenol as needed - Moderate persistent asthma Ventolin as needed. Trelegy Ellipta inhaler. Singulair - Peptic ulcer disease with GERD Protonix - Essential hypertension Lopressor. - Chronic insomnia Doxepin - Full code Disposition: Home Past Medical History Past Medical History: Asthma, GERD/Reflux, Hypertension, Osteoarthritis (OA) History of Any Multi-Drug Resistant Organisms: None Reported Past Surgical History: No Surgical Hx Reported Past Anesthesia/Blood Transfusion Reactions: No Reported Reaction Past Psychological History: No Psychological Hx Reported Smoking Status: Never smoker Past Alcohol Use History: None Reported Past Drug Use History: None Reported Plan - Discharge Summary Discharge Rx Participant: No New Discharge Prescriptions: New Atorvastatin [Lipitor] 80 mg PO HS #60 tab Nitroglycerin Sl Tabs [Nitrostat] 0.4 mg SUBLINGUAL Q5M PRN #30 tab PRN Reason: Chest Pain Aspirin 81 mg PO DAILY tab Ticagrelor [Brilinta] 90 mg PO BID #60 tab Metoprolol Tartrate [Lopressor] 12.5 mg PO BID #60 tab Continue Albuterol Inhaler [Ventolin Hfa Inhaler] 2 puff INHALATION RT-QID PRN PRN Reason: Shortness Of Breath Pantoprazole [Protonix] 40 mg PO BID Fluticasone/Umeclidin/Vilanter [Trelegy Ellipta 200-62.5-25] 1 puff INHALATION RT-DAILY Clotrimazole Cream [Lotrimin Cream] 1 applic TOPICAL DAILY Montelukast [Singulair] 10 mg PO HS Enalapril Maleate 20 mg PO HS Doxepin HCl 50 mg PO HS Discontinued Meloxicam 7.5 mg PO DAILY Discharge Medication List Albuterol Inhaler [Ventolin Hfa Inhaler] 2 puff INHALATION RT-QID PRN 04/12/21 [History] Doxepin HCl 50 mg PO HS 04/12/21 [History] Enalapril Maleate 20 mg PO HS 04/12/21 [History] Montelukast [Singulair] 10 mg PO HS 04/12/21 [History] Clotrimazole Cream [Lotrimin Cream] 1 applic TOPICAL DAILY 11/23/24 [History] Fluticasone/Umeclidin/Vilanter [Trelegy Ellipta 200-62.5-25] 1 puff INHALATION RT-DAILY 11/23/24 [History] Pantoprazole [Protonix] 40 mg PO BID 11/23/24 [History] Aspirin 81 mg PO DAILY tab 11/25/24 [Rx] Atorvastatin [Lipitor] 80 mg PO HS #60 tab 11/25/24 [Rx] Metoprolol Tartrate [Lopressor] 12.5 mg PO BID #60 tab 11/25/24 [Rx] Nitroglycerin Sl Tabs [Nitrostat] 0.4 mg SUBLINGUAL Q5M PRN #30 tab 11/25/24 [Rx] Ticagrelor [Brilinta] 90 mg PO BID #60 tab 11/25/24 [Rx] Follow up Appointment(s)/Referral(s): Naman Batista MD [Primary Care Provider] - 1-2 days Skyler Almanza MD [STAFF PHYSICIAN] - 1 Week (Office will call with appointment date and time.) Discharge/Stand Alone Forms: Area PCPs Discharge Disposition: HOME SELF-CARE
== END 2024-11-25 14:28 | disposition home or self-care (01) | DRG 322 ==
LOC: EC 16:35 → 2SICU 16:57 → OBSVTOIN 16:58 → 2SICU 17:22 → 3SCARD 18:06 → 2SICU 18:42
PROVIDERS: ADMIT Hospitalist; ATTEND Hospitalist
PROC: B2111ZZ Fluoroscopy of Multiple Coronary Arteries using Low Osmolar Contrast (ICD-10-PCS; 2024-11-23)
PROC: 027034Z Dilation of Coronary Artery, One Artery with Drug-eluting Intraluminal Device, Percutaneous Approach (ICD-10-PCS; principal; 2024-11-23 17:08)
PROC: 4A023N7 Measurement of Cardiac Sampling and Pressure, Left Heart, Percutaneous Approach (ICD-10-PCS; 2024-11-23 17:08)
DX: I21.09 ST elevation (STEMI) myocardial infarction involving other coronary artery of anterior wall (principal); E78.5 Hyperlipidemia, unspecified; I10 Essential (primary) hypertension; J45.40 Moderate persistent asthma, uncomplicated; K27.9 Peptic ulcer, site unspecified, unspecified as acute or chronic, without hemorrhage or perforation; F51.04 Psychophysiologic insomnia; M15.9 Polyosteoarthritis, unspecified; I25.10 Atherosclerotic heart disease of native coronary artery without angina pectoris; K21.9 Gastro-esophageal reflux disease without esophagitis; R32 Unspecified urinary incontinence; Z79.1 Long term (current) use of non-steroidal anti-inflammatories (NSAID); Z79.51 Long term (current) use of inhaled steroids; Z79.82 Long term (current) use of aspirin; Z79.899 Other long term (current) drug therapy
CPT/HCPCS: 36415; 71045; 80053; 83690; 83735; 83880; 84484; 85025; 85610; 85730; 93005; 93458; 94640; 96374; 96375; 99285

== ENCOUNTER 2024-12-07 20:09 | Observation (INO) | payer MEDICARE ==
--- NOTE | 2024-12-07 20:22 | ED ---
Chest Pain HPI - General Chief Complaint: Chest Pain Stated Complaint: Chest Pain Time Seen by Provider: 12/07/24 20:10 Source: patient, EMS, RN notes reviewed, old records reviewed Mode of arrival: EMS Limitations: no limitations - History of Present Illness Initial Comments: This is a 79-year-old female to the ER for evaluation of chest pain chest pain weakness dizziness symptoms began after argument with over her QVC orders, patient had multiple packages on the porch and became very frustrated with the amount of QVC that she has been ordering lately and patient has history of stent placed 2 weeks ago. Patient has persistent chest pain here in the ER with shortness of breath MD Complaint: chest pain -: hour(s) Onset: during rest, during exertion Pain Location: substernal, left chest Pain Radiation: none Severity: moderate Severity scale (1-10): 5 Quality: tightness, heaviness Consistency: constant Worsens With: nothing Anginal Symptoms: sense of impending doom Other Symptoms: palpitations Treatments Prior to Arrival: none - Related Data Home Medications Medication Instructions Recorded Confirmed Albuterol Inhaler [Ventolin Hfa 2 puff INHALATION RT-QID PRN 04/12/21 11/23/24 Inhaler] Doxepin HCl 50 mg PO HS 04/12/21 11/23/24 Enalapril Maleate 20 mg PO HS 04/12/21 11/23/24 Montelukast [Singulair] 10 mg PO HS 04/12/21 11/23/24 Clotrimazole Cream [Lotrimin Cream] 1 applic TOPICAL DAILY 11/23/24 11/23/24 Fluticasone/Umeclidin/Vilanter 1 puff INHALATION RT-DAILY 11/23/24 11/23/24 [Trelegy Ellipta 200-62.5-25] Pantoprazole [Protonix] 40 mg PO BID 11/23/24 11/23/24 Previous Rx's Medication Instructions Recorded Aspirin 81 mg PO DAILY tab 11/25/24 Atorvastatin [Lipitor] 80 mg PO HS #60 tab 11/25/24 Metoprolol Tartrate [Lopressor] 12.5 mg PO BID #60 tab 11/25/24 Nitroglycerin Sl Tabs [Nitrostat] 0.4 mg SUBLINGUAL Q5M PRN #30 tab 11/25/24 Ticagrelor [Brilinta] 90 mg PO BID #60 tab 11/25/24 Allergies Allergy/AdvReac Type Severity Reaction Status Date / Time sulfamethoxazole Allergy Intermediate Nausea Verified 11/23/24 19:23 [From Bactrim] trimethoprim [From Bactrim] Allergy Intermediate Nausea Verified 11/23/24 19:23 prednisone Allergy Unknown Verified 11/23/24 19:23 tetracycline Allergy Rash/Hives Verified 11/23/24 19:23 rynatan Allergy Rash/Hives Uncoded 11/23/24 16:42 Review of Systems ROS Statement: Those systems with pertinent positive or pertinent negative responses have been documented in the HPI. ROS Other: All systems not noted in ROS Statement are negative. EKG Findings - EKG Comments: EKG Findings:: EKG is sinus 77 FL 177 QRS 84 QTc 396 - EKG Results: EKG: interpreted by MANOHAR Past Medical History Past Medical History: Asthma, GERD/Reflux, Hypertension, Osteoarthritis (OA) Additional Past Medical History / Comment(s): Anemia in 08/2024 with iron and blood replacement, no noted GI bleeding History of Any Multi-Drug Resistant Organisms: None Reported Past Surgical History: No Surgical Hx Reported Additional Past Surgical History / Comment(s): right hip and knee replacement. right shoulder. upper and lower GI scope with polyp removal,heart cath 11/23/24 stent to the mid circ Past Anesthesia/Blood Transfusion Reactions: No Reported Reaction Date of Last Stent Placement:: 11/23/2024 Past Psychological History: No Psychological Hx Reported Smoking Status: Never smoker Past Alcohol Use History: None Reported Past Drug Use History: None Reported - Past Family History Mother History Unknown: Yes General Exam Limitations: no limitations General appearance: alert, in no apparent distress Head exam: Present: atraumatic, normocephalic, normal inspection Eye exam: Present: normal appearance, PERRL, EOMI. Absent: scleral icterus, conjunctival injection, periorbital swelling ENT exam: Present: normal exam, mucous membranes moist Neck exam: Present: normal inspection. Absent: tenderness, meningismus, lymphadenopathy Respiratory exam: Present: normal lung sounds bilaterally. Absent: respiratory distress, wheezes, rales, rhonchi, stridor Cardiovascular Exam: Present: regular rate, normal rhythm, normal heart sounds. Absent: systolic murmur, diastolic murmur, rubs, gallop, clicks GI/Abdominal exam: Present: soft, normal bowel sounds. Absent: distended, tenderness, guarding, rebound, rigid Extremities exam: Present: normal inspection, full ROM, normal capillary refill. Absent: tenderness, pedal edema, joint swelling, calf tenderness Back exam: Present: normal inspection Neurological exam: Present: alert, oriented X3, CN II-XII intact Psychiatric exam: Present: normal affect, normal mood Skin exam: Present: warm, dry, intact, normal color. Absent: rash Course Vital Signs 12/07/24 12/07/24 20:14 20:51 Temperature 97.9 F Pulse Rate 76 77 Respiratory 16 16 Rate Blood Pressure 103/67 94/54 O2 Sat by Pulse 96 97 Oximetry - Reevaluation(s) Reevaluation #1: 12/07/24 21:24 Medical records reviewed Reevaluation #2: 12/07/24 21:24 Patient's symptoms improved here in the ER Reevaluation #3: 12/07/24 21:25 Patient informed of results and questions answered does not feel comfortable with discharge Reevaluation #4: Was pt. sent in by a medical professional or institution (, PA, ENVELOPE PRESS OPERATOR, urgent care, hospital, or retirement...) When possible be specific @ -no Did you speak to anyone other than the patient for history (EMS, parent, family, police, friend...)? What history was obtained from this source @ -no Did you review nursing and triage notes (agree or disagree)? Why? @ -agree Are old charts reviewed (outside hosp., previous admission, EMS record, old EKG, old radiological studies, urgent care reports/EKG's, retirement records)? Report findings @ -yes Differential Diagnosis (chest pain, altered mental status, abdominal pain women, abdominal pain men, vaginal bleeding, weakness, fever, dyspnea, syncope, headache, dizziness, GI bleed, back pain, seizure, CVA, palpatations, mental health, musculoskeletal)? @ -prior EKG interpreted by me (3pts min.). @ -yes X-rays interpreted by me (1pt min.). @ -yes negative for acute disease CT interpreted by me (1pt min.). @ -no U/S interpreted by me (1pt. min.). @ -no What testing was considered but not performed or refused? (CT, X-rays, U/S, labs)? Why? @ -none What meds were considered but not given or refused? Why? @ -none Did you discuss the management of the patient with other professionals (professionals i.e. , PA, ENVELOPE PRESS OPERATOR, lab, RT, psych nurse, family welfare social work professor, security assurance analyst, teacher, probation officer, trimming caser)? Give summary @ -no Was smoking cessation discussed for >3mins.? @ -no Was critical care preformed (if so, how long)? @ -no Were there social determinants of health that impacted care today? How? (Homelessness, low income, unemployed, alcoholism, drug addiction, transportation, low edu. Level, literacy, decrease access to med. care, retirement, rehab)? @ -none Was there de-escalation of care discussed even if they declined (Discuss DNR or withdrawal of care, Hospice)? DNR status @ -no What co-morbidities impacted this encounter? (DM, HTN, Smoking, COPD, CAD, Cancer, CVA, ARF, Chemo, Hep., AIDS, mental health diagnosis, sleep apnea, morbid obesity)? @ -none Was patient admitted / discharged? Hospital course, mention meds given and route, prescriptions, significant lab abnormalities, going to OR and other pertinent info. @ - Undiagnosed new problem with uncertain prognosis? @ -no Drug Therapy requiring intensive monitoring for toxicity (Heparin, Nitro, Insulin, Cardizem)? @ -no Were any procedures done? @ -no Diagnosis/symptom? @ - Acute, or Chronic, or Acute on Chronic? @ -Acute Uncomplicated (without systemic symptoms) or Complicated (systemic symptoms)? @ -Complicated Side effects of treatment? @ -no Exacerbation, Progression, or Severe Exacerbation? @ -exacerbation Poses a threat to life or bodily function? How? (Chest pain, [place], [place], pneumonia, PE, COPD, DKA, ARF, appy, cholecystitis, CVA, Diverticulitis, Homicidal, Suicidal, threat to staff... and all critical care pts) @ -yes Reevaluation #5: Differential Chest Pain: Stable Angina, Unstable Angina, STEMI, NSTEMI Aortic Dissection, Pneumothorax, Musculoskeletal, Esophageal Spasm GERD, Cholecystitis, Pancreatitis, Zoster, this is not meant to be an all-inclusive list. - Consultations Consultation #1: Spoke with [facility] who agrees to admit this patient for chest pain Chest Pain MDM - MDM 79 female recent stent placement coming in for chest pain today. Patient will be admitted for cardiac observation Disposition Clinical Impression: Chest pain, Epigastric pain, Panic attack, CAD (coronary artery disease) Disposition: ADMITTED IP TO THIS HOSP Condition: Fair Is patient prescribed a controlled substance at d/c from ED?: No Referrals: None,Stated [Primary Care Provider] - 1-2 days Time of Disposition: 21:00
[2024-12-07 20:29] LABS: Basophils # (A) 0.03 10*3/uL (0.00-0.10); Basophils % (A) 0.7 %; Eosinophils # (A) 0.08 10*3/uL (0.04-0.35); Eosinophils % (A) 1.8 %; HCT 34.1 % (37.2-46.3); HGB 11.1 g/dL (12.0-15.0); MCH 28.4 pg (27.0-32.0); MCHC 32.6 g/dL (32.0-37.0); MCV 87.2 fL (80.0-97.0); Mean Platelet Volume 9.2 fL (9.5-12.2); Monocytes # (A) 0.54 10*3/uL (0.20-1.00); Monocytes % (A) 12.1 %; Neutrophils # (A) 2.99 10*3/uL (1.80-7.70); Neutrophils % (A) 67.2 %; Platelet Count 332 10*3/uL (140-440); RBC 3.91 10*6/uL (4.10-5.20); RDW 17.9 % (11.5-14.5); WBC 4.45 10*3/uL (4.50-10.00)
--- NOTE | 2024-12-07 20:38 | XR ---
EXAMINATION TYPE: XR chest 2V DATE OF EXAM: 12/07/2024 8:32 PM COMPARISON: None available. CLINICAL INDICATION: Female, 79 years old with history of Chest Pain; [facility] TECHNIQUE: XR chest 2V Frontal and lateral views of the chest. FINDINGS: Cardiac silhouette is stable from prior study. No acute focal consolidation. No sizable pleural effusion. Fluid along the right fissure. No pneumothorax. No acute osseous abnormality. IMPRESSION: No acute cardiopulmonary disease/process. [facility], , 12/07/2024 8:36 PM
[2024-12-07 20:48] LABS: ALT 12 U/L (4-34); African American GFR (CKD) >90 (>60 ml/min/1.73 sqM); Albumin 3.1 g/dL (3.5-5.0); Anion Gap 6 mmol/L; Blood Urea Nitrogen 17 mg/dL (7-17); Calcium 8.4 mg/dL (8.4-10.2); Carbon Dioxide 22 mmol/L (22-30); Chloride 104 mmol/L (98-107); Glucose 130 mg/dL (74-99); Lipase 42 U/L (23-300); Non-African American GFR(CKD) 88 (>60 ml/min/1.73 sqM); Sodium 132 mmol/L (137-145); Total Bilirubin 0.7 mg/dL (0.2-1.3); Total Protein 5.6 g/dL (6.3-8.2)
[2024-12-07 20:50] LABS: AST 24 U/L (14-36); Alkaline Phosphatase 114 U/L (38-126); Magnesium 1.8 mg/dL (1.6-2.3); Potassium 4.2 mmol/L (3.5-5.1)
[2024-12-07 20:51] LABS: Partial Thromboplastin Time 22.2 sec (22.0-30.0); Prothrombin Time 10.9 sec (10.0-12.5)
[2024-12-07 20:57] LABS: NT-Pro-B-Type Natriuretic Pept 54 pg/mL
[2024-12-07] MEDS ORDERED: NALOXONE 0.4 MG/ML 1 ML VIAL IV PRN (21:15)
[2024-12-07] MEDS ORDERED: ONDANSETRON 4 MG/2 ML VIAL IVP PRN (21:15)
[2024-12-07] MEDS ORDERED: MORPHINE SULFATE 4 MG/ML SYRINGE IV PRN (21:15)
[2024-12-07] MEDS: MAG HYDROX/AL HYDROX/SIMETH 30 ML CUP PO STA (21:17)
[2024-12-07] MEDS: ONDANSETRON 4 MG/2 ML VIAL IVP STA (21:19)
[2024-12-07] MEDS ORDERED: HEPARIN SODIUM 1,000 UN/ML (10ML VL) IV PRN (21:25)
[2024-12-07] MEDS: PANTOPRAZOLE 40 MG/10 ML VIAL IVP STA (21:25)
[2024-12-07] MEDS: SODIUM CHLORIDE 0.9% 1,000 ML IV ONE (21:26)
[2024-12-07] MEDS: HEPARIN SOD,PORK IN 0.45% NACL 25,000 UNIT in 0.45% NACL 1 250ML.BAG IV SCH (21:44)
[2024-12-07] MEDS: HEPARIN SODIUM 1,000 UN/ML (10ML VL) IV ONE (21:45)
[2024-12-07] MEDS: SODIUM CHLORIDE 0.9% 1,000 ML IV SCH (21:47)
[2024-12-08 06:32] LABS: Basophils # (A) 0.02 10*3/uL (0.00-0.10); Basophils % (A) 0.4 %; Eosinophils # (A) 0.12 10*3/uL (0.04-0.35); Eosinophils % (A) 2.3 %; HCT 36.3 % (37.2-46.3); HGB 11.8 g/dL (12.0-15.0); Lymphocytes # (A) 1.26 10*3/uL (0.90-5.00); Lymphocytes % (A) 24.1 %; MCH 28.3 pg (27.0-32.0); MCHC 32.5 g/dL (32.0-37.0); MCV 87.1 fL (80.0-97.0); Mean Platelet Volume 8.9 fL (9.5-12.2); Monocytes # (A) 0.59 10*3/uL (0.20-1.00); Monocytes % (A) 11.3 %; Neutrophils # (A) 3.23 10*3/uL (1.80-7.70); Neutrophils % (A) 61.7 %; Platelet Count 329 10*3/uL (140-440); RBC 4.17 10*6/uL (4.10-5.20); RDW 17.8 % (11.5-14.5); WBC 5.23 10*3/uL (4.50-10.00)
[2024-12-08 07:06] LABS: ALT 12 U/L (4-34); African American GFR (CKD) >90 (>60 ml/min/1.73 sqM); Albumin 3.2 g/dL (3.5-5.0); Anion Gap 6 mmol/L; Blood Urea Nitrogen 14 mg/dL (7-17); Calcium 8.9 mg/dL (8.4-10.2); Carbon Dioxide 26 mmol/L (22-30); Chloride 103 mmol/L (98-107); Glucose 93 mg/dL (74-99); Non-African American GFR(CKD) 85 (>60 ml/min/1.73 sqM); Sodium 135 mmol/L (137-145); Total Bilirubin 0.8 mg/dL (0.2-1.3); Total Protein 5.8 g/dL (6.3-8.2)
[2024-12-08 07:13] LABS: AST 25 U/L (14-36); Alkaline Phosphatase 132 U/L (38-126); Magnesium 2.1 mg/dL (1.6-2.3); Potassium 4.5 mmol/L (3.5-5.1)
[2024-12-08] MEDS ORDERED: ALBUTEROL NEBULIZED 2.5 MG/3 ML INHALATION PRN (09:38)
--- NOTE | 2024-12-08 09:41 | P.CRDCN ---
History of Present Illness Consult date: 12/08/24 History of present illness: The patient is a pleasant 79-year-old female patient who is known to our service from before who was admitted to the hospital 2 weeks ago with a chest discomfort and underwent a heart catheterization and was found to have occluded left circum flex distally which was stented. She presented back to the hospital today complaining of chest discomfort started last night. She was in her usual state of health till yesterday when she started experiencing discomfort in the middle of the chest as a sharp kind of feeling with no radiation to the arms or neck or shoulders or back and no associated symptoms and discomfort is clearly different from what she had before. Currently she is chest pain-free. Further evaluation was performed including troponin came to be unremarkable and EKG showed sinus mechanism with no ST or T wave abnormalities with Q waves anteriorly. The patient is asymptomatic at this point and she is hemodynamically stable. She stated that she has been compliant with her medications including dual antiplatelet therapy along with high intensity statin. The physical examination is remarkable for regular rhythm with a soft systolic murmur at the right upper sternal border with clear breathing sounds bilaterally and no edema was noted in the lower extremities Assessment Atypical chest discomfort CAD status post PCI of the LCx Multiple comorbid conditions Plan The patient is asymptomatic and hemodynamically stable Possible discharge in the next 12 to 24 hours Past Medical History Past Medical History: Asthma, GERD/Reflux, Hypertension, Osteoarthritis (OA) Additional Past Medical History / Comment(s): Anemia in 08/2024 with iron and blood replacement, no noted GI bleeding History of Any Multi-Drug Resistant Organisms: None Reported Past Surgical History: No Surgical Hx Reported Additional Past Surgical History / Comment(s): right hip and knee replacement. right shoulder. upper and lower GI scope with polyp removal,heart cath 11/23/24 stent to the mid circ Past Anesthesia/Blood Transfusion Reactions: No Reported Reaction Date of Last Stent Placement:: 11/23/2024 Past Psychological History: No Psychological Hx Reported Smoking Status: Never smoker Past Alcohol Use History: None Reported Past Drug Use History: None Reported - Past Family History Mother History Unknown: Yes Medications and Allergies Home Medications Medication Instructions Recorded Confirmed Type Albuterol Inhaler [Ventolin Hfa 2 puff INHALATION RT-QID PRN 04/12/21 12/08/24 History Inhaler] Doxepin HCl 50 mg PO HS 04/12/21 12/08/24 History Enalapril Maleate 20 mg PO HS 04/12/21 12/08/24 History Montelukast [Singulair] 10 mg PO HS 04/12/21 12/08/24 History Clotrimazole Cream [Lotrimin Cream] 1 applic TOPICAL DAILY 11/23/24 12/08/24 History Fluticasone/Umeclidin/Vilanter 1 puff INHALATION RT-DAILY 11/23/24 12/08/24 Hi story [Trelegy Ellipta 200-62.5-25] Pantoprazole [Protonix] 40 mg PO BID 11/23/24 12/08/24 History Aspirin 81 mg PO DAILY tab 11/25/24 12/08/24 Rx Atorvastatin [Lipitor] 80 mg PO HS #60 tab 11/25/24 12/08/24 Rx Metoprolol Tartrate [Lopressor] 12.5 mg PO BID #60 tab 11/25/24 12/08/24 Rx Nitroglycerin Sl Tabs [Nitrostat] 0.4 mg SUBLINGUAL Q5M PRN #30 tab 11/25/24 12/08/24 Rx Ticagrelor [Brilinta] 90 mg PO BID #60 tab 11/25/24 12/08/24 Rx Allergies Allergy/AdvReac Type Severity Reaction Status Date / Time sulfamethoxazole Allergy Intermediate Nausea Verified 12/08/24 09:10 [From Bactrim] trimethoprim [From Bactrim] Allergy Intermediate Nausea Verified 12/08/24 09:10 prednisone Allergy Unknown Verified 12/08/24 09:10 tetracycline Allergy Rash/Hives Verified 12/08/24 09:10 rynatan Allergy Rash/Hives Uncoded 12/08/24 09:10 Physical Exam Vitals: Vital Signs Temp Pulse Resp BP Pulse Ox 12/08/24 08:00 75 20 156/68 97 12/08/24 06:00 69 16 162/86 98 12/08/24 04:00 67 16 114/65 97 12/08/24 02:00 68 16 135/82 94 L 12/08/24 00:00 72 16 119/71 97 12/07/24 22:00 70 16 106/64 98 12/07/24 21:50 67 16 110/62 97 12/07/24 20:51 77 16 94/54 97 12/07/24 20:14 97.9 F 76 16 103/67 96 Intake and Output 12/07/24 12/08/24 12/08/24 22:59 06:59 14:59 Intake Total 76.784 Balance 76.784 Intake: Intake, IV Titration 76.784 Amount Heparin Sod,Pork in 0.45% 76.784 NaCl 25,000 unit In 0.45 % NaCl 1 250ml.bag @ 12 UNITS/KG/HR 8.709 mls/hr IV .Q24H [facility] Rx#: [id number] Other: Weight 72.575 kg Results 12/08/24 06:08 12/08/24 06:08 Cardiac Enzymes 12/07/24 12/07/24 12/07/24 Range/Units 20:21 20:21 23:59 AST 24 (14-36) U/L Troponin I <0.012 <0.012 (0.000-0.034) ng/mL 12/08/24 12/08/24 Range/Units 06:08 06:08 AST 25 (14-36) U/L Troponin I <0.012 (0.000-0.034) ng/mL Coagulation 12/07/24 12/08/24 Range/Units 20:21 05:50 PT 10.9 (10.0-12.5) sec APTT 22.2 70.2 H (22.0-30.0) sec CBC 12/07/24 12/08/24 Range/Units 20:21 06:08 WBC 4.45 L 5.23 (4.50-10.00) 10*3/uL RBC 3.91 L 4.17 (4.10-5.20) 10*6/uL Hgb 11.1 L 11.8 L (12.0-15.0) g/dL Hct 34.1 L 36.3 L (37.2-46.3) % Plt Count 332 329 (140-440) 10*3/uL Comprehensive Metabolic Panel 12/07/24 12/08/24 Range/Units 20:21 06:08 Sodium 132 L 135 L (137-145) mmol/L Potassium 4.2 4.5 (3.5-5.1) mmol/L Chloride 104 103 (98-107) mmol/L Carbon Dioxide 22 26 (22-30) mmol/L BUN 17 14 (7-17) mg/dL Creatinine 0.60 0.66 (0.52-1.04) mg/dL Glucose 130 H 93 (74-99) mg/dL Calcium 8.4 8.9 (8.4-10.2) mg/dL AST 24 25 (14-36) U/L ALT 12 12 (4-34) U/L Alkaline Phosphatase 114 132 H (38-126) U/L Total Protein 5.6 L 5.8 L (6.3-8.2) g/dL Albumin 3.1 L 3.2 L (3.5-5.0) g/dL Current Medications Generic Name Dose Route Start Last Admin Trade Name Freq PRN Reason Stop Dose Admin Heparin Sodium (Porcine) 0 unit 12/07/24 21:25 Heparin Sodium 1,000 Un/Ml (10ml Vl) IV PER PROTOCOL PRN Low PTT Protocol Sodium Chloride 1,000 mls @ 20 mls/hr 12/07/24 21:15 12/07/24 21:47 Saline 0.9% IV 20 mls/hr .Q24H RAJIV Administration Heparin Sodium/Sodium Chloride 250 mls @ 8.709 mls/hr 12/07/24 21:30 12/08/24 06:33 25,000 unit/ Sodium Chloride IV 12 units/kg/hr .Q24H RAJIV 8.709 mls/hr Titration Protocol 12 UNITS/KG/HR Morphine Sulfate 4 mg 12/07/24 21:15 Morphine Sulfate 4 Mg/Ml Syringe IV Q4HR PRN Severe Pain (Scale 7 to 10) Naloxone HCl 0.2 mg 12/07/24 21:15 Naloxone 0.4 Mg/Ml 1 Ml Vial IV Q2M PRN Opioid Reversal Ondansetron HCl 4 mg 12/07/24 21:15 Ondansetron 4 Mg/2 Ml Vial IVP Q8HR PRN Nausea And Vomiting Pantoprazole Sodium 40 mg 12/08/24 09:00 Pantoprazole 40 Mg/10 Ml Vial IV DAILY RAJIV Intake and Output 12/07/24 12/08/24 12/08/24 22:59 06:59 14:59 Intake Total 76.784 Balance 76.784 Intake: Intake, IV Titration 76.784 Amount Heparin Sod,Pork in 0.45% 76.784 NaCl 25,000 unit In 0.45 % NaCl 1 250ml.bag @ 12 UNITS/KG/HR 8.709 mls/hr IV .Q24H [facility] Rx#: [id number] Other: Weight 72.575 kg 12/08/24 06:08 12/08/24 06:08
[2024-12-08] MEDS: PANTOPRAZOLE 40 MG/10 ML VIAL IV SCH (09:42)
[2024-12-08] MEDS: TICAGRELOR 90 MG TAB PO SCH (09:57)
[2024-12-08] MEDS: ASPIRIN 81 MG PO SCH (09:57)
[2024-12-08] MEDS: METOPROLOL TARTRATE 12.5 MG TAB PO SCH (10:01)
[2024-12-08 10:08] VITALS: RESP 16
--- NOTE | 2024-12-08 10:45 | P.HPIM ---
History of Present Illness H&P Date: 12/08/24 History of present illness; patient 79-year-old lady with past medical history significant for GERD, coronary artery disease with recent stent placement in mid circumflex on November 23, 2024 who presented the ER because of chest pain. Patient stated he was all right yesterday when after an argument with her over packages she started experiencing chest pain that was central location, pressure-like, nonradiating, no aggravating or leaving associated chest pain. There was no complaint of orthopnea or PND. Patient was complaining of shortness of breath during that time. Patient denies any palpitation. There is no complaint of orthopnea or PND. Denies any nausea, vomiting abdominal pain. Patient denies any complaint of dizziness. There is no complaint of headache. Because of this chest pain, patient came to the ER Initial lab work done in the ER showed WBC 4.45, hemoglobin 9.1, platelet count 332, sodium 132, potassium 4.2, BUN 17, creatinine 0.60, glucose 130 AST 24, ALT 12, troponin 0.012, albumin 3.1 EKG done in the ER showed heart rate of 77, no ST segment elevation or depr ession seen, no T-wave inversions seen. Chest x-ray done in the ER showed no acute cardiopulmonary process Patient admitted to internal medicine service REVIEW OF SYSTEMS: CONSTITUTIONAL: No fever, no malaise, no fatigue. HEENT: No recent visual problems or hearing problems. Denied any sore throat. CARDIOVASCULAR: As mentioned above PULMONARY: As mentioned above GASTROINTESTINAL: No diarrhea, no nausea, no vomiting, no abdominal pain. NEUROLOGICAL: No headaches, no weakness, no numbness. HEMATOLOGICAL: Denies any bleeding or petechiae. GENITOURINARY: Denies any burning micturition, frequency, or urgency. MUSCULOSKELETAL/RHEUMATOLOGICAL: Denies any joint pain, swelling, or any muscle pain. ENDOCRINE: Denies any polyuria or polydipsia. The rest of the 14-point review of systems is negative. PHYSICAL EXAMINATION: GENERAL: The patient is alert and oriented x3, not in any acute distress. Well developed, well nourished. HEENT: Pupils are round and equally reacting to light. EOMI. No scleral icterus. No conjunctival pallor. Normocephalic, atraumatic. No pharyngeal erythema. No thyromegaly. CARDIOVASCULAR: S1 and S2 present. No murmurs, rubs, or gallops. PULMONARY: Chest is clear to auscultation, no wheezing or crackles. ABDOMEN: Soft, nontender, nondistended, normoactive bowel sounds. No palpable organomegaly. MUSCULOSKELETAL: No joint swelling or deformity. EXTREMITIES: No cyanosis, clubbing, or pedal edema. NEUROLOGICAL: Gross neurological examination did not reveal any focal deficits. SKIN: No rashes. Assessment and plan Chest pain, rule out acute coronary syndrome History of recent PCI with stent placement in mid circumflex Coronary artery disease involving proximal to mid LAD 30 to 40% stenosis History of osteoarthritis History of moderate persistent asthma Peptic ulcer disease Hypertension Monitor vital signs Monitor CBC Monitor CMP Continue telemetry monitoring Trend troponin Patient started on heparin pharmacy dose Resume aspirin and Brilinta Resume Lopressor Resume home meds Consult cardiology Labs and medication were reviewed.. Continue same treatment. Continue with symptomatic treatment. Resume home medication. Monitor labs and vitals. DVT and GI prophylaxis. Further recommendations as per clinical course of the patient Dictation was produced using [employer] dictation software. please excuse any grammatical, word or spelling errors. Past Medical History Past Medical History: Asthma, GERD/Reflux, Hypertension, Osteoarthritis (OA) Additional Past Medical History / Comment(s): Anemia in 08/2024 with iron and blood replacement, no noted GI bleeding History of Any Multi-Drug Resistant Organisms: None Reported Past Surgical History: No Surgical Hx Reported Additional Past Surgical History / Comment(s): right hip and knee replacement. right shoulder. upper and lower GI scope with polyp removal,heart cath 11/23/24 stent to the mid circ Past Anesthesia/Blood Transfusion Reactions: No Reported Reaction Date of Last Stent Placement:: 11/23/2024 Past Psychological History: No Psychological Hx Reported Smoking Status: Never smoker Past Alcohol Use History: None Reported Past Drug Use History: None Reported - Past Family History Mother History Unknown: Yes Medications and Allergies Home Medications Medication Instructions Recorded Confirmed Type Albuterol Inhaler [Ventolin Hfa 2 puff INHALATION RT-QID PRN 04/12/21 12/08/24 History Inhaler] Doxepin HCl 50 mg PO HS 04/12/21 12/08/24 History Enalapril Maleate 20 mg PO HS 04/12/21 12/08/24 History Montelukast [Singulair] 10 mg PO HS 04/12/21 12/08/24 History Clotrimazole Cream [Lotrimin Cream] 1 applic TOPICAL DAILY 11/23/24 12/08/24 History Fluticasone/Umeclidin/Vilanter 1 puff INHALATION RT-DAILY 11/23/24 12/08/24 History [Trelegy Ellipta 200-62.5-25] Pantoprazole [Protonix] 40 mg PO BID 11/23/24 12/08/24 History Aspirin 81 mg PO DAILY tab 11/25/24 12/08/24 Rx Atorvastatin [Lipitor] 80 mg PO HS #60 tab 11/25/24 12/08/24 Rx Metoprolol Tartrate [Lopressor] 12.5 mg PO BID #60 tab 11/25/24 12/08/24 Rx Nitroglycerin Sl Tabs [Nitrostat] 0.4 mg SUBLINGUAL Q5M PRN #30 tab 11/25/24 12/08/24 Rx Ticagrelor [Brilinta] 90 mg PO BID #60 tab 11/25/24 12/08/24 Rx Allergies Allergy/AdvReac Type Severity Reaction Status Date / Time sulfamethoxazole Allergy Intermediate Nausea Verified 12/08/24 09:10 [From Bactrim] trimethoprim [From Bactrim] Allergy Intermediate Nausea Verified 12/08/24 09:10 prednisone Allergy Unknown Verified 12/08/24 09:10 tetracycline Allergy Rash/Hives Verified 12/08/24 09:10 [email or web address] Allergy Rash/Hives Uncoded 12/08/24 09:10 Physical Exam Vitals: Vital Signs Temp Pulse Resp BP Pulse Ox 12/08/24 08:00 75 20 156/68 97 12/08/24 06:00 69 16 162/86 98 12/08/24 04:00 67 16 114/65 97 12/08/24 02:00 68 16 135/82 94 L 12/08/24 00:00 72 16 119/71 97 12/07/24 22:00 70 16 106/64 98 12/07/24 21:50 67 16 110/62 97 12/07/24 20:51 77 16 94/54 97 12/07/24 20:14 97.9 F 76 16 103/67 96 Intake and Output 12/07/24 12/08/2425 22:59 06:59 14:59 Intake Total 76.784 Balance 76.784 Intake: Intake, IV Titration 76.784 Amount Heparin Sod,Pork in 0.45% 76.784 NaCl 25,000 unit In 0.45 % NaCl 1 250ml.bag @ 12 UNITS/KG/HR 8.709 mls/hr IV .Q24H [facility] Rx#: [id number] Other: Weight 72.575 kg Results CBC & Chem 7: 12/08/24 06:08 12/08/24 06:08 Labs: Abnormal Lab Results - Last 24 Hours (Table) 12/07/24 12/07/24 12/08/24 Range/Units 20:21 20:21 05:50 WBC 4.45 L (4.50-10.00) 10*3/uL RBC 3.91 L (4.10-5.20) 10*6/uL Hgb 11.1 L (12.0-15.0) g/dL Hct 34.1 L (37.2-46.3) % MPV 9.2 L (9.5-12.2) fL Lymphocytes # 0.80 L (0.90-5.00) 10*3/uL APTT 70.2 H (22.0-30.0) sec Sodium 132 L (137-145) mmol/L Glucose 130 H (74-99) mg/dL Alkaline Phosphatase (38-126) U/L Total Protein 5.6 L (6.3-8.2) g/dL Albumin 3.1 L (3.5-5.0) g/dL 12/08/24 12/08/24 Range/Units 06:08 06:08 WBC (4.50-10.00) 10*3/uL RBC (4.10-5.20) 10*6/uL Hgb 11.8 L (12.0-15.0) g/dL Hct 36.3 L (37.2-46.3) % MPV 8.9 L (9.5-12.2) fL Lymphocytes # (0.90-5.00) 10*3/uL APTT (22.0-30.0) sec Sodium 135 L (137-145) mmol/L Glucose (74-99) mg/dL Alkaline Phosphatase 132 H (38-126) U/L Total Protein 5.8 L (6.3-8.2) g/dL Albumin 3.2 L (3.5-5.0) g/dL
[2024-12-08 13:47] VITALS: BP 142/75; PULSE 68; TEMP 98
[2024-12-08] MEDS ORDERED: PANTOPRAZOLE 40 MG TABLET PO SCH (21:00)
[2024-12-08] MEDS ORDERED: ATORVASTATIN 80 MG TAB PO SCH (21:00)
[2024-12-08] MEDS ORDERED: MONTELUKAST 10 MG TAB PO SCH (21:00)
[2024-12-08] MEDS ORDERED: DOXEPIN 25 MG CAP PO SCH (21:00)
[2024-12-09] MEDS ORDERED: SYMBICORT 160-4.5 MCG INHALER INHALATION SCH (08:00)
[2024-12-09] MEDS ORDERED: TIOTROPIUM 2.5 MCG INHALER INHALATION SCH (08:00)
== END 2024-12-08 13:47 | disposition home or self-care (01) ==
LOC: EC 20:09 → 6NMEDSUR 21:16
PROVIDERS: ADMIT Hospitalist; ATTEND Hospitalist
DX: R07.89 Other chest pain (principal); F41.0 Panic disorder [episodic paroxysmal anxiety]; K21.9 Gastro-esophageal reflux disease without esophagitis; I25.10 Atherosclerotic heart disease of native coronary artery without angina pectoris; I10 Essential (primary) hypertension; J45.40 Moderate persistent asthma, uncomplicated; Z88.2 Allergy status to sulfonamides; Z88.1 Allergy status to other antibiotic agents; Z88.8 Allergy status to other drugs, medicaments and biological substances; Z95.5 Presence of coronary angioplasty implant and graft; Z79.02 Long term (current) use of antithrombotics/antiplatelets; Z79.82 Long term (current) use of aspirin; Z79.899 Other long term (current) drug therapy; Z87.11 Personal history of peptic ulcer disease
CPT/HCPCS: 96376; 96365; 96366 ×2; 96375; 99285; 36415; 93005; 83880; 80053 ×2; 83690; 83735 ×2; 84100; 84484 ×2; 85025 ×2; 85610; 85730 ×2; 71046; G0378 ×2; J2405; J1644 ×2; J2470 ×2

== ENCOUNTER 2025-02-04 20:07 | Observation (INO) | payer MEDICARE ==
[2025-02-04] MEDS: NITROGLYCERIN OINT 1 INCH/GM PACKET TOPICAL SCH (20:39)
[2025-02-04] MEDS: SODIUM CHLORIDE 0.9% 1,000 ML IV STA ×2 (20:40)
[2025-02-04 20:53] LABS: Basophils # (A) 0.02 10*3/uL (0.00-0.10); Basophils % (A) 0.3 %; Eosinophils # (A) 0.02 10*3/uL (0.04-0.35); Eosinophils % (A) 0.3 %; HCT 32.8 % (37.2-46.3); HGB 10.9 g/dL (12.0-15.0); Lymphocytes # (A) 0.66 10*3/uL (0.90-5.00); Lymphocytes % (A) 9.2 %; MCH 28.5 pg (27.0-32.0); MCHC 33.2 g/dL (32.0-37.0); MCV 85.9 fL (80.0-97.0); Monocytes # (A) 0.54 10*3/uL (0.20-1.00); Monocytes % (A) 7.5 %; Neutrophils # (A) 5.93 10*3/uL (1.80-7.70); Neutrophils % (A) 82.4 %; Platelet Count 341 10*3/uL (140-440); RBC 3.82 10*6/uL (4.10-5.20); RDW 14.3 % (11.5-14.5); WBC 7.19 10*3/uL (4.50-10.00)
[2025-02-04 21:03] LABS: ALT 10 U/L (4-34); AST 18 U/L (14-36); African American GFR (CKD) >90 (>60 ml/min/1.73 sqM); Albumin 3.1 g/dL (3.5-5.0); Alkaline Phosphatase 132 U/L (38-126); Anion Gap 8 mmol/L; Blood Urea Nitrogen 22 mg/dL (7-17); Calcium 8.5 mg/dL (8.4-10.2); Carbon Dioxide 21 mmol/L (22-30); Chloride 102 mmol/L (98-107); Glucose 126 mg/dL (74-99); Magnesium 2.0 mg/dL (1.6-2.3); Non-African American GFR(CKD) >90 (>60 ml/min/1.73 sqM); Potassium 4.5 mmol/L (3.5-5.1); Sodium 131 mmol/L (137-145); Total Protein 5.5 g/dL (6.3-8.2)
[2025-02-04 21:13] LABS: INR 1.0 (<1.2); Prothrombin Time 10.9 sec (10.0-12.5)
[2025-02-04 21:20] LABS: Partial Thromboplastin Time 21.6 sec (22.0-30.0)
--- NOTE | 2025-02-04 21:39 | XR ---
EXAMINATION TYPE: XR chest 2V DATE OF EXAM: 02/04/2025 9:30 PM COMPARISON: Chest radiographs from 12/07/2024 TECHNIQUE: XR chest 2V Frontal and lateral views of the chest. CLINICAL INDICATION:Female, 79 years old with history of Chest Pain; FINDINGS: Lungs/Pleura: There is no evidence of pleural effusion, focal consolidation, or pneumothorax. Pulmonary vascularity: Chronic central pulmonary vascular congestion. Heart/mediastinum: Cardiomediastinal silhouette is prominent in size and stable. Musculoskeletal: Multiple level degenerative disc disease changes seen throughout the spine. Right sh oulder arthropathy. IMPRESSION: Chronic changes without acute pulmonary process. No significant change from prior. [facility], , 02/04/2025 9:37 PM
[2025-02-04] MEDS ORDERED: ONDANSETRON 4 MG/2 ML VIAL IVP PRN (22:26)
[2025-02-04] MEDS ORDERED: NALOXONE 0.4 MG/ML 1 ML VIAL IV PRN (22:26)
--- NOTE | 2025-02-04 22:26 | ED ---
General Adult HPI - General Chief complaint: Chest Pain Stated complaint: CHest Pain Time Seen by Provider: 02/04/25 20:15 Source: patient, RN notes reviewed, old records reviewed Mode of arrival: EMS Limitations: no limitations - History of Present Illness Initial comments: 79-year-old female presents emergency department complaint of chest pain. Does have a history of a cardiac stent earlier this year. States she was eating dinner when she had sudden onset of substernal chest discomfort. [place] a little sweaty with it. No nausea. Did receive nitroglycerin on the way here, 3 tablets as well as 324 mg of aspirin. Chest pain earlier was a 10 out of 10. States pain is nearly resolved and is approximately 1 or 2 out of 10. Denies any radiation of the pain when it was present. Denies any diaphoresis with it. Presents for further evaluation at this time. Describes it as a pressure-like sensation. - Related Data Home Medications Medication Instructions Recorded Confirmed Albuterol Inhaler [Ventolin Hfa 2 puff INHALATION RT-QID PRN 04/12/21 12/08/24 Inhaler] Doxepin HCl 50 mg PO HS 04/12/21 12/08/24 Enalapril Maleate 20 mg PO HS 04/12/21 12/08/24 Montelukast [Singulair] 10 mg PO HS 04/12/21 12/08/24 Clotrimazole Cream [Lotrimin Cream] 1 applic TOPICAL DAILY 11/23/24 12/08/24 Fluticasone/Umeclidin/Vilanter 1 puff INHALATION RT-DAILY 11/23/24 12/08/24 [Trelegregorio Ellipta 200-62.5-25] Pantoprazole [Protonix] 40 mg PO BID 11/23/24 12/08/24 Previous Rx's Medication Instructions Recorded Aspirin 81 mg PO DAILY tab 11/25/24 Atorvastatin [Lipitor] 80 mg PO HS #60 tab 11/25/24 Metoprolol Tartrate [Lopressor] 12.5 mg PO BID #60 tab 11/25/24 Nitroglycerin Sl Tabs [Nitrostat] 0.4 mg SUBLINGUAL Q5M PRN #30 tab 11/25/24 Ticagrelor [Brilinta] 90 mg PO BID #60 tab 11/25/24 Allergies Allergy/AdvReac Type Severity Reaction Status Date / Time sulfamethoxazole Allergy Intermediate Nausea Verified 12/08/24 09:10 [From Bactrim] trimethoprim [From Bactrim] Allergy Intermediate Nausea Verified 12/08/24 09:10 prednisone Allergy Unknown Verified 12/08/24 09:10 tetracycline Allergy Rash/Hives Verified 12/08/24 09:10 rynatan Allergy Rash/Hives Uncoded 12/08/24 09:10 Review of Systems ROS Statement: Those systems with pertinent positive or pertinent negative responses have been documented in the HPI. Review of Systems: CONST: Denies fever EYES: Denies blurry vision ENT: Denies nasal congestion C/V: Endorses chest pain RESP: Denies shortness of breath GI: Denies abdominal pain : Denies dysuria SKIN: Denies rash. MSK: Denies joint pain. NEURO: Denies headache ROS Other: All systems not noted in ROS Statement are negative. Past Medical History Past Medical History: Asthma, GERD/Reflux, Hypertension, Osteoarthritis (OA) Additional Past Medical History / Comment(s): Anemia in 08/2024 with iron and blood replacement, no noted GI bleeding History of Any Multi-Drug Resistant Organisms: None Reported Past Surgical History: No Surgical Hx Reported Additional Past Surgical History / Comment(s): right hip and knee replacement. right shoulder. upper and lower GI scope with polyp removal,heart cath 11/23/24 stent to the mid circ Past Anesthesia/Blood Transfusion Reactions: No Reported Reaction Date of Last Stent Placement:: 11/23/2024 Past Psychological History: No Psychological Hx Reported Smoking Status: Never smoker Past Alcohol Use History: None Reported Past Drug Use History: None Reported - Past Family History Mother History Unknown: Yes General Exam - General Exam Comments Initial Comments: General: Appears in no acute distress. HEAD: Normal with no signs of head trauma. EYES: PERRLA, EOMI, conjunctiva normal, no discharge. ENT: Hearing grossly intact, normal oropharynx. RESPIRATORY: Clear breath sounds bilaterally. No wheezes, rales, or rhonchi. C/V: Regular rate and rhythm. S1 and S2 auscultated, no edema, peripheral pulses 2+ and intact throughout ABD: Abd is soft, nontender, nondistended EXT: Normal range of motion, no obvious deformity SKIN: No rashes or lesions observed on exposed skin. NEURO: Alert and oriented x 4. Cranial nerves II-XII intact. No focal sensory or strength deficits. Limitations: no limitations Course Vital Signs 02/04/25 20:07 Temperature 97.9 F Pulse Rate 91 Respiratory 16 Rate Blood Pressure 146/71 O2 Sat by Pulse 97 Oximetry Medical Decision Making - Medical Decision Making Was pt. sent in by a medical professional or institution (, KENIA, FORGING ENGINEER, urgent care, hospital, or fci...) When possible be specific @ -No Did you speak to anyone other than the patient for history (EMS, parent, family, police, friend...)? What history was obtained from this source @ -No Did you review nursing and triage notes (agree or disagree)? Why? @ -I reviewed and agree with nursing and triage notes Were old charts reviewed (outside hosp., previous admission, EMS record, old EKG, old radiological studies, urgent care reports/EKG's, fci records)? Report findings @ -Reviewed EKG from December 07, 2024 with no significant acute change when compared with today's. Differential Diagnosis (chest pain, altered mental status, abdominal pain women, abdominal pain men, vaginal bleeding, weakness, fever, dyspnea, syncope, headache, dizziness, GI bleed, back pain, seizure, CVA, palpatations, mental health, musculoskeletal)? @ -Differential Chest Pain: Stable Angina, Unstable Angina, STEMI, NSTEMI Aortic Dissection, Pneumothorax, Musculoskeletal, Esophageal Spasm GERD, Cholecystitis, Pancreatitis, Zoster, this is not meant to be an all-inclusive list. EKG interpreted by me (3pts min.). @ -As above X-rays interpreted by me (1pt min.). @ -Chest x-ray shows no obvious acute cardiopulmonary process. CT interpreted by me (1pt min.). @ -None done U/S interpreted by me (1pt. min.). @ -None done What testing was considered but not performed or refused? (CT, X-rays, U/S, labs)? Why? @ -None What meds were considered but not given or refused? Why? @ -None Did you discuss the management of the patient with other professionals (professionals i.e. KENIA Doe, FORGING ENGINEER, lab, RT, psych nurse, social work administrator, mill hand plate mill, teacher, career services officer, case management coordinator)? Give summary @ -Discussed with the admitting provider, Dr. Monahan. Was smoking cessation discussed for >3mins.? @ -No Was critical care preformed (if so, how long)? @ -No Were there social determinants of health that impacted care today? How? (Homelessness, low income, unemployed, alcoholism, drug addiction, transportation, low edu. Level, literacy, decrease access to med. care, nursing home, rehab)? @ -No Was there de-escalation of care discussed even if they declined (Discuss DNR or withdrawal of care, Hospice)? DNR status @ -No What co-morbidities impacted this encounter? (DM, HTN, Smoking, COPD, CAD, Cancer, CVA, ARF, Chemo, Hep., AIDS, mental health diagnosis, sleep apnea, morbid obesity)? @ -Cardiac stent Was patient admitted / discharged? Hospital course, mention meds given and route, prescriptions, significant lab abnormalities, going to OR and other pertinent info. @ -Based on patient's presentation physical exam, presents emergency department complaint of chest pain. Does have significant cardiac history. We will obtain cardiac workup. Chest pain is improved following sublingual nitroglycerin tablets from EMS. She already received 324 mg from EMS. Vitals are within acceptable limits. EKG shows no signs of acute ischemia. Chest x-ray unremarkable. Laboratory studies remarkable for chronic anemia with hemoglobin of 10.9. This appears stable. Troponin undetectable. I discussed results with the patient. Following nitroglycerin paste which was applied, patient's chest pain is nearly resolved. With her significant cardiac history she will be admitted to cardiac observation. Cardiology consulted. Patient was in agreement this plan. I spoke with city call Dr. Monahan who accepted the admission. Undiagnosed new problem with uncertain prognosis? @ -No Drug Therapy requiring intensive monitoring for toxicity (Heparin, Nitro, Insulin, Cardizem)? @ -No Were any procedures done? @ -No Diagnosis/symptom? @ -Chest pain Acute, or Chronic, or Acute on Chronic? @ -Acute Uncomplicated (without systemic symptoms) or Complicated (systemic symptoms)? @ -Complicated Side effects of treatment? @ -No Exacerbation, Progression, or Severe Exacerbation? @ -No Poses a threat to life or bodily function? How? (Chest pain, [place], [place], pneumonia, PE, COPD, DKA, ARF, appy, cholecystitis, CVA, Diverticulitis, Homicidal, Suicidal, threat to staff... and all critical care pts) @ -Potentially, yes - Lab Data Result diagrams: 02/04/25 20:40 02/04/25 20:40 Lab Results 02/04/25 02/04/25 02/04/25 Range/Units 20:40 20:40 20:40 WBC 7.19 (4.50-10.00) 10*3/uL RBC 3.82 L (4.10-5.20) 10*6/uL Hgb 10.9 L (12.0-15.0) g/dL Hct 32.8 L (37.2-46.3) % MCV 85.9 (80.0-97.0) fL MCH 28.5 (27.0-32.0) pg MCHC 33.2 (32.0-37.0) g/dL Plt Count 341 (140-440) 10*3/uL MPV 9.2 L (9.5-12.2) fL Immature Gran % (Auto) 0.3 % Neutrophils % 82.4 % Lymphocytes % 9.2 % Monocytes % 7.5 % Eosinophils % 0.3 % Basophils % 0.3 % Immature Gran # 0.02 (0.00-0.04) 10*3/uL Neutrophils # 5.93 (1.80-7.70) 10*3/uL Lymphocytes # 0.66 L (0.90-5.00) 10*3/uL Monocytes # 0.54 (0.20-1.00) 10*3/uL Eosinophils # 0.02 L (0.04-0.35) 10*3/uL Basophils # 0.02 (0.00-0.10) 10*3/uL PT 10.9 (10.0-12.5) sec INR 1.0 (<1.2) APTT 21.6 L (22.0-30.0) sec Sodium 131 L (137-145) mmol/L Potassium 4.5 (3.5-5.1) mmol/L Chloride 102 (98-107) mmol/L Carbon Dioxide 21 L (22-30) mmol/L Anion Gap 8 mmol/L BUN 22 H (7-17) mg/dL Creatinine 0.55 (0.52-1.04) mg/dL Est GFR (CKD-EPI)AfAm >90 (>60 ml/min/1.73 sqM) Est GFR (CKD-EPI)NonAf >90 (>60 ml/min/1.73 sqM) Glucose 126 H (74-99) mg/dL Calcium 8.5 (8.4-10.2) mg/dL Magnesium 2.0 (1.6-2.3) mg/dL Total Bilirubin 0.8 (0.2-1.3) mg/dL AST 18 (14-36) U/L ALT 10 (4-34) U/L Alkaline Phosphatase 132 H (38-126) U/L Troponin I (0.000-0.034) ng/mL Total Protein 5.5 L (6.3-8.2) g/dL Albumin 3.1 L (3.5-5.0) g/dL 02/04/25 Range/Units 20:40 WBC (4.50-10.00) 10*3/uL RBC (4.10-5.20) 10*6/uL Hgb (12.0-15.0) g/dL Hct (37.2-46.3) % MCV (80.0-97.0) fL MCH (27.0-32.0) pg MCHC (32.0-37.0) g/dL Plt Count (140-440) 10*3/uL MPV (9.5-12.2) fL Immature Gran % (Auto) % Neutrophils % % Lymphocytes % % Monocytes % % Eosinophils % % Basophils % % Immature Gran # (0.00-0.04) 10*3/uL Neutrophils # (1.80-7.70) 10*3/uL Lymphocytes # (0.90-5.00) 10*3/uL Monocytes # (0.20-1.00) 10*3/uL Eosinophils # (0.04-0.35) 10*3/uL Basophils # (0.00-0.10) 10*3/uL PT (10.0-12.5) sec INR (<1.2) APTT (22.0-30.0) sec Sodium (137-145) mmol/L Potassium (3.5-5.1) mmol/L Chloride (98-107) mmol/L Carbon Dioxide (22-30) mmol/L Anion Gap mmol/L BUN (7-17) mg/dL Creatinine (0.52-1.04) mg/dL Est GFR (CKD-EPI)AfAm (>60 ml/min/1.73 sqM) Est GFR (CKD-EPI)NonAf (>60 ml/min/1.73 sqM) Glucose (74-99) mg/dL Calcium (8.4-10.2) mg/dL Magnesium (1.6-2.3) mg/dL Total Bilirubin (0.2-1.3) mg/dL AST (14-36) U/L ALT (4-34) U/L Alkaline Phosphatase (38-126) U/L Troponin I <0.012 (0.000-0.034) ng/mL Total Protein (6.3-8.2) g/dL Albumin (3.5-5.0) g/dL - EKG Data -: EKG Interpreted by Me EKG Comments: 12-lead Electrocardiogram Interpretation Note EKG was reviewed and interpreted by myself. 12-lead ECG performed at [facility] is interpreted by me as revealing normal sinus rhythm at a rate of 91 beats per minute. Left axis deviation. [place] interval is 172 ms, QRS duration is 67 ms, QTc is 366 ms.. There were no ST or T wave abnormalities to suggest myocardial ischemia or injury. R wave progression across the precordium was delayed. By my interpretation this EKG is non-diagnostic for acute ischemia. Disposition Clinical Impression: Chest pain Disposition: ADMITTED IP TO THIS [facility] Condition: Stable Referrals: None,Stated [Primary Care Provider] - 1-2 days Time of Disposition: 22:26
[2025-02-04] MEDS ORDERED: ALBUTEROL NEBULIZED 2.5 MG/3 ML INHALATION PRN (22:28)
[2025-02-04] MEDS: METOPROLOL TARTRATE 12.5 MG TAB PO SCH (22:42)
[2025-02-04] MEDS: TICAGRELOR 90 MG TAB PO SCH (22:42)
[2025-02-04] MEDS: ATORVASTATIN 80 MG TAB PO SCH (22:43)
[2025-02-04] MEDS: PANTOPRAZOLE 40 MG TABLET PO SCH (22:43)
[2025-02-04] MEDS: SODIUM CHLORIDE 0.9% 1,000 ML IV SCH (22:46)
[2025-02-04] MEDS: methylPREDNISolone 4 MG TAB TAPER PO SCH (22:50)
[2025-02-05] MEDS: ACETAMINOPHEN TAB 325 MG TAB PO PRN (03:58)
[2025-02-05 04:29] LABS: Basophils # (A) 0.02 10*3/uL (0.00-0.10); Basophils % (A) 0.3 %; Eosinophils # (A) 0.00 10*3/uL (0.04-0.35); Eosinophils % (A) 0.0 %; HCT 32.7 % (37.2-46.3); HGB 10.8 g/dL (12.0-15.0); Lymphocytes # (A) 0.56 10*3/uL (0.90-5.00); Lymphocytes % (A) 8.7 %; MCH 28.6 pg (27.0-32.0); MCHC 33.0 g/dL (32.0-37.0); MCV 86.5 fL (80.0-97.0); Monocytes # (A) 0.08 10*3/uL (0.20-1.00); Monocytes % (A) 1.2 %; Neutrophils # (A) 5.76 10*3/uL (1.80-7.70); Neutrophils % (A) 89.3 %; Platelet Count 349 10*3/uL (140-440); RBC 3.78 10*6/uL (4.10-5.20); RDW 14.4 % (11.5-14.5); WBC 6.45 10*3/uL (4.50-10.00)
[2025-02-05 04:53] LABS: ALT 10 U/L (4-34); AST 16 U/L (14-36); African American GFR (CKD) >90 (>60 ml/min/1.73 sqM); Albumin 3.1 g/dL (3.5-5.0); Alkaline Phosphatase 144 U/L (38-126); Anion Gap 9 mmol/L; Blood Urea Nitrogen 17 mg/dL (7-17); Calcium 8.8 mg/dL (8.4-10.2); Carbon Dioxide 19 mmol/L (22-30); Chloride 107 mmol/L (98-107); Glucose 126 mg/dL (74-99); Non-African American GFR(CKD) >90 (>60 ml/min/1.73 sqM); Potassium 4.6 mmol/L (3.5-5.1); Sodium 135 mmol/L (137-145); Total Protein 5.4 g/dL (6.3-8.2)
[2025-02-05 07:31] VITALS: BP 147/75; RESP 18; TEMP 98.2
[2025-02-05] MEDS: IPRATROPIUM-ALBUTEROL 3 ML NEB INHALATION SCH (08:40)
[2025-02-05] MEDS: SYMBICORT 160-4.5 MCG INHALER INHALATION SCH (08:41)
[2025-02-05] MEDS: TIOTROPIUM 2.5 MCG INHALER INHALATION SCH (08:41)
[2025-02-05 08:59] VITALS: PULSE 86
[2025-02-05] MEDS: ASPIRIN 81 MG PO SCH (09:28)
[2025-02-05] MEDS: HEPARIN SODIUM,PORCINE 5,000 UNIT/ML 1 ML VIAL SQ SCH (09:34)
--- NOTE | 2025-02-05 11:03 | HP ---
HISTORY AND PHYSICAL HISTORY OF PRESENT ILLNESS: A 79-year-old white female came in with chest pain, admitted for rule out myocardial infarction. She came in to get serial troponins, atypical chest pain is substernal. Nitroglycerin helped on the way here. Waiting for Cardiology to see her. Negative D- dimer. No diaphoresis. More pressure sensation. HOME MEDICATIONS: Reviewed. REVIEW OF SYSTEMS: A 14-point review of systems otherwise negative. PAST MEDICAL HISTORY: Asthma, GERD, hypertension, osteoarthritis, and history of anemia. PHYSICAL EXAMINATION: VITAL SIGNS: Temperature 97.9, pulse 91, respiratory rate 16, blood pressure 146/71, and O2 97%. HEENT: Normocephalic, atraumatic. Pupils equal, round, and reactive. CARDIOVASCULAR: S1, S2. LUNGS: Clear. GI: Soft. HEMATOLOGY: Negative Homans. NEURO: Cranial nerves intact. LABORATORY DATA: Hemoglobin is 10.9, white count 7.19, negative D-dimer. EKG was reviewed, sinus rhythm, nonspecific ST-T changes. ASSESSMENT: Atypical chest pain, rule out myocardial infarction. Negative troponins. Wait for Cardiology clearance for discharge. Chest x-ray is negative. Home medications have been reordered. MMODL / IJN: [id number] /
--- NOTE | 2025-02-05 12:33 | P.CRDCN ---
History of Present Illness History of present illness: HISTORY OF PRESENT ILLNESS: This is a 79-year-old female with a past medical history significant for coronary artery disease with previous stenting, hypertension, and hyperlipidemia. Patient follows in the office with Dr. Almanza. We have been asked to see the patient in consultation for chest pain. Patient examined at the bedside. Patient states yesterday she was eating pizza. She states after she had her first bite she started to have chest discomfort which lasted for about 30 minutes. She decided to come to the hospital for further evaluation. She states she has not had any further episodes of chest pain or pressure since coming to the hospital. DIAGNOSTICS: - EKG reveals sinus mechanism with no signs of acute ischemia. - Chest xray chronic changes without acute pulmonary process. - Laboratory data: Troponin negative x 3. D-dimer negative. - Current home cardiac medications include aspirin 81 mg daily, Lipitor 80 mg at night, enalapril 20 mg at night, Imdur 30 mg daily, metoprolol tartrate 12.5 mg twice a day, Brilinta 90 mg twice a day. - No previous echocardiogram available in EMR for review - Cardiac catheterization history: November 2024 revealed mid LAD 30 to 40% stenosis and 100% mid circumflex stenosis just after OM1 branch. Patient underwent stenting of the mid circumflex. REVIEW OF SYSTEMS: At the time of my exam: CONSTITUTIONAL: Denies fever or chills. HEENT: Denies blurred vision, vision changes, or eye pain. Denies hemoptysis CARDIOVASCULAR: Denies chest pain. Denies orthopnea. Denies PND. Denies palpitations RESPIRATORY: Denies shortness of breath. GASTROINTESTINAL: Denies abdominal pain. Denies nausea or vomiting. HEMATOLOGIC: Denies bleeding disorders. GENITOURINARY: Denies any blood in urine. SKIN: Denies pruitis. Denies rash. PHYSICAL EXAM: VITAL SIGNS: Reviewed. GENERAL: Well-developed in no acute distress. HEENT: Head is normocephalic. Pupils are equal, round. Sclerae anicteric. Mucous membranes of the mouth are moist. Neck supple. No JVD or thyromegaly LUNGS: Respirations even and unlabored. Lungs essentially clear to auscultation bilaterally. HEART: Regular rate and rhythm. S1 and S2 heard. ABDOMEN: Soft. Nondistended. Nontender. EXTREMITIES: Normal range of motion. No clubbing or cyanosis. Peripheral pulses intact. No lower extremity edema NEUROLOGIC: Awake and alert. Oriented x 3. ASSESSMENT: Chest pain, atypical, troponin negative x 3 Coronary artery disease with recent stenting to the mid circumflex, November 2024 Hypertension Hyperlipidemia PLAN: An acute coronary event has been ruled out May obtain updated echocardiogram on an outpatient basis Resume home cardiac medications Patient will be discharged home today from a cardiac standpoint and follow-up in the office with Dr. Almanza We will sign off. Please reconsult if needed. Nurse practitioner note has been reviewed by physician. Signing provider agrees with the documented findings, assessment, and plan of care documented by MEDICAL OFFICE ASST as a scribe. Past Medical History Past Medical History: Asthma, GERD/Reflux, Hypertension, Osteoarthritis (OA) Additional Past Medical History / Comment(s): Anemia in 08/2024 with iron and blood replacement, no noted GI bleeding History of Any Multi-Drug Resistant Organisms: None Reported Past Surgical History: Heart Catheterization With Stent Additional Past Surgical History / Comment(s): right hip and knee replacement. right shoulder. upper and lower GI scope with polyp removal,heart cath 11/23/24 stent to the mid circ Past Anesthesia/Blood Transfusion Reactions: Postoperative Nausea & Vomiting (PONV) Date of Last Stent Placement:: 2024 Past Psychological History: No Psychological Hx Reported Smoking Status: Never smoker Past Alcohol Use History: None Reported Past Drug Use History: None Reported - Past Family History Mother History Unknown: Yes Medications and Allergies Home Medications Medication Instructions Recorded Confirmed Type Albuterol Inhaler [Ventolin Hfa 2 puff INHALATION RT-QID PRN 04/12/21 02/05/25 History Inhaler] Doxepin HCl 50 mg PO HS 04/12/21 02/05/25 History Enalapril Maleate 20 mg PO HS 04/12/21 02/05/25 History Montelukast [Singulair] 10 mg PO HS 04/12/21 02/05/25 History Clotrimazole Cream [Lotrimin Cream] 1 applic TOPICAL DAILY 11/23/24 02/05/25 History Fluticasone/Umeclidin/Vilanter 1 puff INHALATION RT-DAILY 11/23/24 02/05/25 History [Trelegy Ellipta 200-62.5-25] Pantoprazole [Protonix] 40 mg PO BID 11/23/24 02/05/25 History Aspirin 81 mg PO DAILY tab 11/25/24 02/05/25 Rx Atorvastatin [Lipitor] 80 mg PO HS #60 tab 11/25/24 02/05/25 Rx Metoprolol Tartrate [Lopressor] 12.5 mg PO BID #60 tab 11/25/24 02/05/25 Rx Nitroglycerin Sl Tabs [Nitrostat] 0.4 mg SUBLINGUAL Q5M PRN #30 tab 11/25/24 02/05/25 Rx Ticagrelor [Brilinta] 90 mg PO BID #60 tab 11/25/24 02/05/25 Rx Ferrous Sulfate [Feosol] 325 mg PO DAILY 02/05/25 02/05/25 History Fluticasone Nasal [place] [Flonase 2 spray EA NOSTRIL DAILY 02/05/25 02/05/25 History Nasal [place]] Isosorbide Mononitrate ER [Imdur] 30 mg PO DAILY 02/05/25 02/05/25 History Mupirocin 2% Oint [Bactroban 2% 1 applic TOPICAL BID 02/05/25 02/05/25 History Oint] methylPREDNISolone Dose Pack See Taper PO DIRECTED 02/05/25 02/05/25 History [Medrol Dose Pack] Allergies Allergy/AdvReac Type Severity Reaction Status Date / Time sulfamethoxazole Allergy Intermediate Nausea Verified 02/05/25 07:44 [From Bactrim] trimethoprim [From Bactrim] Allergy Intermediate Nausea Verified 02/05/25 07:44 prednisone Allergy Unknown Verified 02/05/25 07:44 tetracycline Allergy Rash/Hives Verified 02/05/25 07:44 rynatan Allergy Rash/Hives Uncoded 02/05/25 07:44 Physical Exam Vitals: Vital Signs Temp Pulse Pulse Resp BP BP Pulse Ox 02/05/25 08:42 88 02/05/25 06:47 98.2 F 90 18 147/75 96 02/05/25 01:49 97.8 F 81 17 134/78 97 02/05/25 01:34 17 02/04/25 23:31 98.0 F 86 17 118/62 99 02/04/25 23:13 89 20 115/70 97 02/04/25 20:07 97.9 F 91 16 146/71 97 Intake and Output 02/04/25 02/05/25 02/05/25 22:59 06:59 14:59 Other: Voiding Method Toilet Diaper # Voids 3 Weight 68.039 kg 68.039 kg Results 02/05/25 03:52 02/05/25 03:52 Cardiac Enzymes 02/04/25 02/04/25 02/05/25 Range/Units 20:40 20:40 00:03 AST 18 (14-36) U/L Troponin I <0.012 <0.012 (0.000-0.034) ng/mL 02/05/25 02/05/25 Range/Units 03:52 03:52 AST 16 (14-36) U/L Troponin I <0.012 (0.000-0.034) ng/mL Coagulation 02/04/25 Range/Units 20:40 PT 10.9 (10.0-12.5) sec APTT 21.6 L (22.0-30.0) sec CBC 02/04/25 02/05/25 Range/Units 20:40 03:52 WBC 7.19 6.45 (4.50-10.00) 10*3/uL RBC 3.82 L 3.78 L (4.10-5.20) 10*6/uL Hgb 10.9 L 10.8 L (12.0-15.0) g/dL Hct 32.8 L 32.7 L (37.2-46.3) % Plt Count 341 349 (140-440) 10*3/uL Comprehensive Metabolic Panel 02/04/25 02/05/25 Range/Units 20:40 03:52 Sodium 131 L 135 L (137-145) mmol/L Potassium 4.5 4.6 (3.5-5.1) mmol/L Chloride 102 107 (98-107) mmol/L Carbon Dioxide 21 L 19 L (22-30) mmol/L BUN 22 H 17 (7-17) mg/dL Creatinine 0.55 0.53 (0.52-1.04) mg/dL Glucose 126 H 126 H (74-99) mg/dL Calcium 8.5 8.8 (8.4-10.2) mg/dL AST 18 16 (14-36) U/L ALT 10 10 (4-34) U/L Alkaline Phosphatase 132 H 144 H (38-126) U/L Total Protein 5.5 L 5.4 L (6.3-8.2) g/dL Albumin 3.1 L 3.1 L (3.5-5.0) g/dL Current Medications Generic Name Dose Route Start Last Admin Trade Name Freq PRN Reason Stop Dose Admin Acetaminophen 650 mg 02/05/25 03:51 02/05/25 03:58 Acetaminophen Tab 325 Mg Tab PO 650 mg Q6HR PRN Administration Fever and/ or Pain Albuterol Sulfate 2.5 mg 02/04/25 22:28 Albuterol Nebulized 2.5 Mg/3 Ml INHALATION RT-QID PRN Shortness Of Breath Albuterol/Ipratropium 3 ml 02/05/25 08:00 02/05/25 08:40 Ipratropium-Albuterol 3 Ml Neb INHALATION 3 ml RT-TID RAJIV Administration Aspirin 81 mg 02/05/25 09:00 Aspirin 81 Mg PO DAILY RAJIV Atorvastatin Calcium 80 mg 02/04/25 22:30 02/04/25 22:43 Atorvastatin 80 Mg Tab PO 80 mg HS RAJIV Administration Budesonide/Formoterol Fumarate 2 puff 02/05/25 08:00 02/05/25 08:41 Symbicort 160-4.5 Mcg Inhaler INHALATION 2 puff RT-BID RAJIV Administration Heparin Sodium (Porcine) 5,000 unit 02/05/25 09:00 Heparin Sodium,Porcine 5,000 Unit/Ml 1 Ml Vial SQ Q12HR RAJIV Sodium Chloride 1,000 mls @ 75 mls/hr 02/04/25 22:30 02/04/25 22:46 Saline 0.9% IV 75 mls/hr .[id number] RAJIV Administration Lisinopril 20 mg 02/04/25 22:30 02/04/25 22:43 Lisinopril 20 Mg Tab PO 20 mg HS RAJIV Administration Methylprednisolone 24 mg 02/04/25 22:30 02/04/25 22:50 Methylprednisolone 4 Mg Tab Taper PO 02/10/25 22:29 24 mg DAILY RAJIV Administration Taper Metoprolol Tartrate 12.5 mg 02/04/25 22:30 02/04/25 22:42 Metoprolol Tartrate 12.5 Mg Tab PO 12.5 mg BID RAJIV Administration Naloxone HCl 0.2 mg 02/04/25 22:26 Naloxone 0.4 Mg/Ml 1 Ml Vial IV Q2M PRN Opioid Reversal Nitroglycerin 0.5 inch 02/04/25 20:25 02/04/25 23:58 Nitroglycerin Oint 1 Inch/Gm Packet TOPICAL 0.5 inch Q8HR RAJIV Administration Ondansetron HCl 4 mg 02/04/25 22:26 Ondansetron 4 Mg/2 Ml Vial IVP Q8HR PRN Nausea And Vomiting Pantoprazole Sodium 40 mg 02/04/25 22:30 02/04/25 22:43 Pantoprazole 40 Mg Tablet PO 40 mg BID RAJIV Administration Ticagrelor 90 mg 02/04/25 22:30 02/04/25 22:42 Ticagrelor 90 Mg Tab PO 90 mg BID RAJIV Administration Tiotropium Start 2 puff 02/05/25 08:00 02/05/25 08:41 Tiotropium 2.5 Mcg Inhaler INHALATION 2 puff RT-DAILY RAJIV Administration Intake and Output 02/04/25 02/05/25 02/05/25 22:59 06:59 14:59 Other: Voiding Method Toilet Diaper # Voids 3 Weight 68.039 kg 68.039 kg 02/05/25 03:52 02/05/25 03:52
== END 2025-02-05 14:08 | disposition home or self-care (01) ==
LOC: EC 20:07 → 6NMEDSUR 22:26
PROVIDERS: ADMIT Family Medicine; ATTEND Family Medicine
DX: R07.2 Precordial pain (principal); I25.10 Atherosclerotic heart disease of native coronary artery without angina pectoris; I10 Essential (primary) hypertension; E78.5 Hyperlipidemia, unspecified; R07.89 Other chest pain; D64.9 Anemia, unspecified; Z79.82 Long term (current) use of aspirin; Z79.02 Long term (current) use of antithrombotics/antiplatelets; Z79.51 Long term (current) use of inhaled steroids; Z79.899 Other long term (current) drug therapy; Z88.1 Allergy status to other antibiotic agents; Z88.2 Allergy status to sulfonamides; Z88.8 Allergy status to other drugs, medicaments and biological substances; Z95.5 Presence of coronary angioplasty implant and graft
CPT/HCPCS: 96361 ×3; 96360; 99285; 36415; 94640 ×2; 93005; 85379; 80053 ×2; 83735; 84484 ×2; 85025 ×2; 85610; 85730; 71046; G0378 ×2; J7509 ×2

== ENCOUNTER 2025-02-05 22:55 | Emergency (ER) | payer MEDICARE ==
--- NOTE | 2025-02-05 22:57 | ED ---
Abdominal Pain HPI - General Stated Complaint: Abd Pain Time Seen by Provider: 02/05/25 22:56 Source: RN notes reviewed, old records reviewed Mode of arrival: EMS Limitations: no limitations - History of Present Illness Initial Comments: This is a 79-year-old female to ER for evaluation of abdominal pain abdominal pain that occurred while going for a walk today. She was going to the store to get some mail, abdominal pain is relatively resolved currently she was just admitted to the hospital recently for chest pain. No current chest pain or shortness of breath just complaining of the abdominal pain which is again now resolved. Mild nausea no vomiting no fevers no illness MD Complaint: abdominal pain -: hour(s) Location: periumbilical Radiation: epigastric Migration to: epigastric Severity scale (1-10): 4 Quality: stabbing Consistency: intermittent, now resolved Improves With: nothing Worsens With: nothing Associated Symptoms: nausea Treatments Prior to Arrival: other - Related Data Home Medications Medication Instructions Recorded Confirmed Albuterol Inhaler [Ventolin Hfa 2 puff INHALATION RT-QID PRN 04/12/21 02/05/25 Inhaler] Doxepin HCl 50 mg PO HS 04/12/21 02/05/25 Enalapril Maleate 20 mg PO HS 04/12/21 02/05/25 Montelukast [Singulair] 10 mg PO HS 04/12/21 02/05/25 Clotrimazole Cream [Lotrimin Cream] 1 applic TOPICAL DAILY 11/23/24 02/05/25 Fluticasone/Umeclidin/Vilanter 1 puff INHALATION RT-DAILY 11/23/24 02/05/25 [Trelegregorio Ellipta 200-62.5-25] Pantoprazole [Protonix] 40 mg PO BID 11/23/24 02/05/25 Ferrous Sulfate [Feosol] 325 mg PO DAILY 02/05/25 02/05/25 Fluticasone Nasal [place] [Flonase 2 spray EA NOSTRIL DAILY 02/05/25 02/05/25 Nasal [place]] Isosorbide Mononitrate ER [Imdur] 30 mg PO DAILY 02/05/25 02/05/25 Mupirocin 2% Oint [Bactroban 2% 1 applic TOPICAL BID 02/05/25 02/05/25 Oint] methylPREDNISolone Dose Pack See Taper PO DIRECTED 02/05/25 02/05/25 [Medrol Dose Pack] Previous Rx's Medication Instructions Recorded Aspirin 81 mg PO DAILY tab 11/25/24 Atorvastatin [Lipitor] 80 mg PO HS #60 tab 11/25/24 Metoprolol Tartrate [Lopressor] 12.5 mg PO BID #60 tab 11/25/24 Nitroglycerin Sl Tabs [Nitrostat] 0.4 mg SUBLINGUAL Q5M PRN #30 tab 11/25/24 Ticagrelor [Brilinta] 90 mg PO BID #60 tab 11/25/24 Allergies Allergy/AdvReac Type Severity Reaction Status Date / Time sulfamethoxazole Allergy Intermediate Nausea Verified 02/05/25 07:44 [From Bactrim] trimethoprim [From Bactrim] Allergy Intermediate Nausea Verified 02/05/25 07:44 prednisone Allergy Unknown Verified 02/05/25 07:44 tetracycline Allergy Rash/Hives Verified 02/05/25 07:44 [email or web address] Allergy Rash/Hives Uncoded 02/05/25 07:44 Review of Systems ROS Statement: Those systems with pertinent positive or pertinent negative responses have been documented in the HPI. ROS Other: All systems not noted in ROS Statement are negative. Past Medical History Past Medical History: Asthma, GERD/Reflux, Hypertension, Osteoarthritis (OA) Additional Past Medical History / Comment(s): Anemia in 08/2024 with iron and blood replacement, no noted GI bleeding History of Any Multi-Drug Resistant Organisms: None Reported Past Surgical History: Heart Catheterization With Stent Additional Past Surgical History / Comment(s): right hip and knee replacement. right shoulder. upper and lower GI scope with polyp removal,heart cath 11/23/24 stent to the mid circ Past Anesthesia/Blood Transfusion Reactions: Postoperative Nausea & Vomiting (PONV) Date of Last Stent Placement:: 2024 Past Psychological History: No Psychological Hx Reported Smoking Status: Never smoker Past Alcohol Use History: None Reported Past Drug Use History: None Reported - Past Family History Mother History Unknown: Yes General Exam General appearance: alert, in no apparent distress Head exam: Present: atraumatic, normocephalic, normal inspection Eye exam: Present: normal appearance, PERRL, EOMI. Absent: scleral icterus, conjunctival injection, periorbital swelling ENT exam: Present: normal exam, mucous membranes moist Neck exam: Present: normal inspection. Absent: tenderness, meningismus, lymphadenopathy Respiratory exam: Present: normal lung sounds bilaterally. Absent: respiratory distress, wheezes, rales, rhonchi, stridor Cardiovascular Exam: Present: regular rate, normal rhythm, normal heart sounds. Absent: systolic murmur, diastolic murmur, rubs, gallop, clicks GI/Abdominal exam: Present: soft, normal bowel sounds. Absent: distended, tenderness, guarding, rebound, rigid Extremities exam: Present: normal inspection, full ROM, normal capillary refill. Absent: tenderness, pedal edema, joint swelling, calf tenderness Back exam: Present: normal inspection Neurological exam: Present: alert, oriented X3, CN II-XII intact Psychiatric exam: Present: normal affect, normal mood Skin exam: Present: warm, dry, intact, normal color. Absent: rash Course Vital Signs 02/05/25 02/06/25 02/06/25 23:00 00:31 01:11 Temperature 97.8 F Pulse Rate 59 L 67 75 Respiratory 12 18 16 Rate Blood Pressure 177/92 187/96 147/76 O2 Sat by Pulse 99 99 95 Oximetry 02/06/25 06:08 Temperature 97.7 F Pulse Rate 71 Respiratory 18 Rate Blood Pressure 149/79 O2 Sat by Pulse 98 Oximetry - Reevaluation(s) Reevaluation #1: 02/05/25 22:57 Medical records reviewed Reevaluation #2: 02/06/25 01:03 Patient symptoms improved Reevaluation #3: 02/06/25 01:03 Patient informed of results questions answered Reevaluation #4: Was pt. sent in by a medical professional or institution (, PA, INVESTMENT REPRESENTATIVE, urgent care, hospital, or fpc...) When possible be specific @ -no Did you speak to anyone other than the patient for history (EMS, parent, family, police, friend...)? What history was obtained from this source @ -no Did you review nursing and triage notes (agree or disagree)? Why? @ -agree Are old charts reviewed (outside hosp., previous admission, EMS record, old EKG, old radiological studies, urgent care reports/EKG's, fpc records)? Report findings @ -yes Differential Diagnosis (chest pain, altered mental status, abdominal pain women, abdominal pain men, vaginal bleeding, weakness, fever, dyspnea, syncope, headache, dizziness, GI bleed, back pain, seizure, CVA, palpatations, mental health, musculoskeletal)? @ -prior EKG interpreted by me (3pts min.). @ -yes X-rays interpreted by me (1pt min.). @ -no CT interpreted by me (1pt min.). @ -no U/S interpreted by me (1pt. min.). @ -yes negative for acute disease What testing was considered but not performed or refused? (CT, X-rays, U/S, labs)? Why? @ -none What meds were considered but not given or refused? Why? @ -none Did you discuss the management of the patient with other professionals (hira aleman i.e., Dr., PA, INVESTMENT REPRESENTATIVE, lab, RT, psych nurse, social services coordinator, casino slot supervisor, teacher, veterinary medical officer, case work aide)? Give summary @ -no Was smoking cessation discussed for >3mins.? @ -no Was critical care preformed (if so, how long)? @ -no Were there social determinants of health that impacted care today? How? (Homelessness, low income, unemployed, alcoholism, drug addiction, transportation, low edu. Level, literacy, decrease access to med. care, shelter, rehab)? @ -none Was there de-escalation of care discussed even if they declined (Discuss DNR or withdrawal of care, Hospice)? DNR status @ -no What co-morbidities impacted this encounter? (DM, HTN, Smoking, COPD, CAD, Cancer, CVA, ARF, Chemo, Hep., AIDS, mental health diagnosis, sleep apnea, morbid obesity)? @ -none Was patient admitted / discharged? Hospital course, mention meds given and route, prescriptions, significant lab abnormalities, going to OR and other pertinent info. @ - 79 female nonspecific abdominal pain no acute cause found patient can be discharged home Discharge Undiagnosed new problem with uncertain prognosis? @ -no Drug Therapy requiring intensive monitoring for toxicity (Heparin, Nitro, Insulin, Cardizem)? @ -no Were any procedures done? @ -no Diagnosis/symptom? @ -Abdominal pain Acute, or Chronic, or Acute on Chronic? @ -Acute Uncomplicated (without systemic symptoms) or Complicated (systemic symptoms)? @ -Complicated Side effects of treatment? @ -no Exacerbation, Progression, or Severe Exacerbation? @ -exacerbation Poses a threat to life or bodily function? How? (Chest pain, [place], [place], pneumonia, PE, COPD, DKA, ARF, appy, cholecystitis, CVA, Diverticulitis, Homicidal, Suicidal, threat to staff... and all critical care pts) @ -yes extremes of age Reevaluation #5: Differential Abdominal Pain Women: Appendicitis, Cholecystitis, diverticulosis, ischemic bowel, pancreatitis, hepatitis, UTI, gastroenteritis, AAA, incarcerated hernia, bowel obstruction, constipation, inflammatory bowel, hepatitis, peptic ulcer disease, splenic infarction, perforated viscus, vulvitis, ovarian torsion, PID, kidney stone, placenta abruption, this is not meant to be an all-inclusive list Medical Decision Making - Medical Decision Making 79 female nonspecific abdominal pain no acute cause found patient can be discharged home - Lab Data Result diagrams: 02/05/25 23:02 02/05/25 23:02 Lab Results 02/05/25 02/05/25 02/05/25 Range/Units 23:02 23:02 23:02 WBC 8.92 (4.50-10.00) 10*3/uL RBC 4.43 (4.10-5.20) 10*6/uL Hgb 12.6 (12.0-15.0) g/dL Hct 38.3 (37.2-46.3) % MCV 86.5 (80.0-97.0) fL MCH 28.4 (27.0-32.0) pg MCHC 32.9 (32.0-37.0) g/dL Plt Count 390 (140-440) 10*3/uL MPV 9.1 L (9.5-12.2) fL Immature Gran % (Auto) 0.8 % Neutrophils % 81.8 % Lymphocytes % 10.8 % Monocytes % 6.4 % Eosinophils % 0.1 % Basophils % 0.1 % Immature Gran # 0.07 H (0.00-0.04) 10*3/uL Neutrophils # 7.30 (1.80-7.70) 10*3/uL Lymphocytes # 0.96 (0.90-5.00) 10*3/uL Monocytes # 0.57 (0.20-1.00) 10*3/uL Eosinophils # 0.01 L (0.04-0.35) 10*3/uL Basophils # 0.01 (0.00-0.10) 10*3/uL PT 10.7 (10.0-12.5) sec INR 1.0 (<1.2) APTT 22.1 (22.0-30.0) sec Sodium 133 L (137-145) mmol/L Potassium 4.9 (3.5-5.1) mmol/L Chloride 101 (98-107) mmol/L Carbon Dioxide 24 (22-30) mmol/L Anion Gap 8 mmol/L BUN 19 H (7-17) mg/dL Creatinine 0.56 (0.52-1.04) mg/dL Est GFR (CKD-EPI)AfAm >90 (>60 ml/min/1.73 sqM) Est GFR (CKD-EPI)NonAf 90 (>60 ml/min/1.73 sqM) Glucose 106 H (74-99) mg/dL Plasma Lactic Acid Jeanmarie (0.7-2.0) mmol/L Calcium 9.4 (8.4-10.2) mg/dL Total Bilirubin 0.8 (0.2-1.3) mg/dL AST 19 (14-36) U/L ALT 11 (4-34) U/L Alkaline Phosphatase 151 H (38-126) U/L Troponin I (0.000-0.034) ng/mL Total Protein 6.4 (6.3-8.2) g/dL Albumin 3.8 (3.5-5.0) g/dL Amylase 51 (30-110) U/L Lipase 32 (23-300) U/L Urine Color Urine Appearance (Clear) Urine pH (5.0-8.0) Ur Specific [place] (1.001-1.035) Urine Protein (Negative) Urine Glucose (UA) (Negative) Urine Ketones (Negative) Urine Blood (Negative) Urine Nitrite (Negative) Urine Bilirubin (Negative) Urine Urobilinogen (<2.0) mg/dL Ur Leukocyte Esterase (Negative) Urine RBC (0-5) /hpf Urine WBC (0-5) /hpf Ur Squamous Epith Cells (0-4) /hpf Urine Bacteria (None) /hpf Urine Mucus (None) /hpf 02/05/25 02/05/25 02/06/25 Range/Units 23:02 23:02 00:21 WBC (4.50-10.00) 10*3/uL RBC (4.10-5.20) 10*6/uL Hgb (12.0-15.0) g/dL Hct (37.2-46.3) % MCV (80.0-97.0) fL MCH (27.0-32.0) pg MCHC (32.0-37.0) g/dL Plt Count (140-440) 10*3/uL MPV (9.5-12.2) fL Immature Gran % (Auto) % Neutrophils % % Lymphocytes % % Monocytes % % Eosinophils % % Basophils % % Immature Gran # (0.00-0.04) 10*3/uL Neutrophils # (1.80-7.70) 10*3/uL Lymphocytes # (0.90-5.00) 10*3/uL Monocytes # (0.20-1.00) 10*3/uL Eosinophils # (0.04-0.35) 10*3/uL Basophils # (0.00-0.10) 10*3/uL PT (10.0-12.5) sec INR (<1.2) APTT (22.0-30.0) sec Sodium (137-145) mmol/L Potassium (3.5-5.1) mmol/L Chloride (98-107) mmol/L Carbon Dioxide (22-30) mmol/L Anion Gap mmol/L BUN (7-17) mg/dL Creatinine (0.52-1.04) mg/dL Est GFR (CKD-EPI)AfAm (>60 ml/min/1.73 sqM) Est GFR (CKD-EPI)NonAf (>60 ml/min/1.73 sqM) Glucose (74-99) mg/dL Plasma Lactic Acid Jeanmarie 1.3 (0.7-2.0) mmol/L Calcium (8.4-10.2) mg/dL Total Bilirubin (0.2-1.3) mg/dL AST (14-36) U/L ALT (4-34) U/L Alkaline Phosphatase (38-126) U/L Troponin I <0.012 (0.000-0.034) ng/mL Total Protein (6.3-8.2) g/dL Albumin (3.5-5.0) g/dL Amylase (30-110) U/L Lipase (23-300) U/L Urine Color Colorless Urine Appearance Clear (Clear) Urine pH 6.0 (5.0-8.0) Ur Specific [place] 1.009 (1.001-1.035) Urine Protein Negative (Negative) Urine Glucose (UA) Negative (Negative) Urine Ketones Negative (Negative) Urine Blood Small H (Negative) Urine Nitrite Negative (Negative) Urine Bilirubin Negative (Negative) Urine Urobilinogen <2.0 (<2.0) mg/dL Ur Leukocyte Esterase Negative (Negative) Urine RBC 1 (0-5) /hpf Urine WBC 2 (0-5) /hpf Ur Squamous Epith Cells <1 (0-4) /hpf Urine Bacteria Rare H (None) /hpf Urine Mucus Rare H (None) /hpf - EKG Data -: EKG Interpreted by Me (EKG is sinus 69 IN 182 QRS 78 QTc 371) - Radiology Data Radiology results: report reviewed (Ultrasound gallbladder negative for acute disease), image reviewed Disposition Clinical Impression: Abdominal pain Disposition: HOME SELF-CARE Condition: Good Instructions (If sedation given, give patient instructions): Abdominal Pain (ED) Is patient prescribed a controlled substance at d/c from ED?: No Referrals: None,Stated [Primary Care Provider] - 1-2 days Time of Disposition: 01:00
[2025-02-05] MEDS: ONDANSETRON 4 MG/2 ML VIAL IVP STA (23:10)
[2025-02-05] MEDS: SODIUM CHLORIDE 0.9% 1,000 ML IV SCH (23:10)
[2025-02-05 23:27] LABS: Basophils # (A) 0.01 10*3/uL (0.00-0.10); Basophils % (A) 0.1 %; Eosinophils # (A) 0.01 10*3/uL (0.04-0.35); Eosinophils % (A) 0.1 %; HCT 38.3 % (37.2-46.3); HGB 12.6 g/dL (12.0-15.0); Lymphocytes # (A) 0.96 10*3/uL (0.90-5.00); Lymphocytes % (A) 10.8 %; MCH 28.4 pg (27.0-32.0); MCHC 32.9 g/dL (32.0-37.0); MCV 86.5 fL (80.0-97.0); Monocytes # (A) 0.57 10*3/uL (0.20-1.00); Monocytes % (A) 6.4 %; Neutrophils # (A) 7.30 10*3/uL (1.80-7.70); Neutrophils % (A) 81.8 %; Platelet Count 390 10*3/uL (140-440); RBC 4.43 10*6/uL (4.10-5.20); RDW 14.4 % (11.5-14.5); WBC 8.92 10*3/uL (4.50-10.00)
[2025-02-05 23:43] LABS: INR 1.0 (<1.2); Partial Thromboplastin Time 22.1 sec (22.0-30.0); Prothrombin Time 10.7 sec (10.0-12.5)
[2025-02-05 23:44] LABS: ALT 11 U/L (4-34); AST 19 U/L (14-36); African American GFR (CKD) >90 (>60 ml/min/1.73 sqM); Albumin 3.8 g/dL (3.5-5.0); Alkaline Phosphatase 151 U/L (38-126); Amylase 51 U/L (30-110); Anion Gap 8 mmol/L; Blood Urea Nitrogen 19 mg/dL (7-17); Calcium 9.4 mg/dL (8.4-10.2); Carbon Dioxide 24 mmol/L (22-30); Chloride 101 mmol/L (98-107); Glucose 106 mg/dL (74-99); Lipase 32 U/L (23-300); Non-African American GFR(CKD) 90 (>60 ml/min/1.73 sqM); Potassium 4.9 mmol/L (3.5-5.1); Sodium 133 mmol/L (137-145); Total Protein 6.4 g/dL (6.3-8.2)
[2025-02-06] MEDS: MORPHINE SULFATE 4 MG/ML SYRINGE IVP STA (00:33)
[2025-02-06 00:49] LABS: Bacteria,Urine Rare /hpf; Bilirubin,Urine Negative (Negative); Blood,Urine Small (Negative); Color,Urine Colorless; Glucose,Urine (UA) Negative (Negative); Ketones,Urine Negative (Negative); Leukocyte Esterase,Urine Negative (Negative); Mucus,Urine Rare /hpf; Nitrite,Urine Negative (Negative); PH, Urine 6.0 (5.0-8.0); Protein,Urine Negative (Negative); RBC,Urine 1 /hpf (0-5); Specific Gravity,Urine 1.009 (1.001-1.035); Squamous Epithelial Cell,Urine <1 /hpf (0-4); Urobilinogen,Urine <2.0 mg/dL (<2.0); WBC,Urine 2 /hpf (0-5)
--- NOTE | 2025-02-06 00:56 | US ---
EXAM: US Abdomen Limited, Right Upper Quadrant CLINICAL HISTORY: Pain TECHNIQUE: Real-time ultrasound of the right upper quadrant with image documentation. COMPARISON: No relevant prior studies available. FINDINGS: Liver: 15 cm length. No mass. No intrahepatic bile duct dilation. Gallbladder: No gallstones. No wall thickening, sonographic Wu's sign or pericholecystic fluid. Common bile duct: 3.9 mm. No stones. No dilation. Pancreas: Obscured by bowel gas. Right kidney: 8 cm length. No stones. No hydronephrosis. lobulation versus mass midpole 2.1 x 1.7 cm. IMPRESSION: No evidence for acute cholecystitis or biliary obstruction. Pancreas obscured by bowel gas. Right renal cortical lobulation versus mass in the midpole, not well characterized. Correlation with contrast-enhanced CT is recommended when clinically appropriate.
[2025-02-06 06:12] VITALS: BP 149/79; PULSE 71; RESP 18; TEMP 97.7
== END 2025-02-06 06:22 | disposition home or self-care (01) ==
LOC: EC 22:55
DX: R10.13 Epigastric pain (principal); Z88.1 Allergy status to other antibiotic agents; Z88.2 Allergy status to sulfonamides; Z88.8 Allergy status to other drugs, medicaments and biological substances
CPT/HCPCS: 36415; 93005; 80053; 82150; 83605; 83690; 84484; 85025; 85610; 85730; 81001; 76705; 99285; 96374; 96361; 96375; J2270; J2405